=== PATIENT | female | born 1945 | race African-American/Black ===

== ENCOUNTER 2024-06-28 21:04 | Emergency (ER) | payer MEDICARE, OTHER, SELFPAY ==
--- NOTE | ~2024-06-28 | XR_ITS ---
CLINICAL HISTORY: s p cp 2 view chest x-ray Comparison: None Findings: No consolidation or effusion. No pneumothorax mild emphysematous changes. Cardiac silhouette and mediastinal contours at the upper limits of normal. Degenerative changes include imaged shoulders and AC joints. Surgical clips are noted in the imaged abdomen. IMPRESSION: No consolidation. This document has been electronically signed by: Jimmy Umana MD on 06/28/2024 22:27:14
--- NOTE | 2024-06-28 21:11 | ECG_ITS ---
Test Reason : CHEST PAIN Blood Pressure : */* mmHG Vent. Rate : 99 BPM Atrial Rate : 99 BPM P-R Int : 150 ms QRS Dur : 94 ms QT Int : 338 ms P-R-T Axes : 58 16 24 degrees QTcB Int : 433 ms Normal sinus rhythm Cannot rule out Anterior infarct , age undetermined Abnormal ECG No previous ECGs available Referred By: Generic ED Physician Electronically Signed By: CADEN NATARAJAN
[2024-06-28 21:28] VITALS: BP 160/76; PULSE 100; RESP 19; TEMP 36.6; O2SAT 98; BMI 27.8
[2024-06-28 21:52] LABS: Basophils Absolute Auto 0.1 X10*3/uL (0.0-0.2); Basophils Percent Auto 1.1 % (0-2); Eosinophils Absolute Auto 0.2 X10*3/uL (0.0-0.4); Eosinophils Percent Auto 3.2 % (0-4); Hematocrit 35.6 % (37.0-47.0); Hemoglobin 12.9 g/dl (12.0-16.0); Imm Gran Abs Auto 0.02 X10*3/uL (0.00-0.03); Imm Gran Pct Auto 0.4 % (0.0-0.4); Lymphocytes Absolute Auto 2.8 X10*3/uL (1.2-4.9); Lymphocytes Percent Auto 49.2 % (20-40); MANUAL DIFF FLAG NO; Mean Corpuscular HGB Conc 36.2 g/dl (31.0-35.0); Mean Corpuscular Hemoglobin 31.1 pg (27.0-33.0); Mean Corpuscular Volume 85.8 fL (80.0-98.0); Mean Platelet Volume 10.3 fL (9.4-12.3); Monocytes Absolute Auto 0.7 X10*3/uL (0.1-1.2); Monocytes Percent Auto 11.5 % (2-11); Neutrophils Percent Auto 34.6 % (45-73); Platelet Count 145 X10*3/uL (160-400); Red Blood Count 4.15 X10*6/uL (4.20-5.50); Red Cell Distribution Width 13.6 % (11.0-16.0); White Blood Count 5.7 X10*3/uL (4.8-10.8)
--- OUTSIDE RECORDS SUMMARY | 2024-06-28 21:58 | XMS_ITS | Data Portability ---
Author Organization [place] - [facility],, JODY BLANKENSHIP MD Address [address] [address] Care Team Providers Care Board Writer Name Role Phone AMMON HIGGINS OTHER Assessment No assessment recorded. Plan of Treatment Reminders Order Date Submit Date Provider Last Modified By Organization Details Last Modified Time Details Appointments None recorded. Lab biopsy, endometri al 2023 024 [email or web address] [facility] (Centralized Electronic Ordering - All Locations), Patient Can Go To The Location Of Their Choice, [id number] 4 07:41:16 wet mount, vaginal 2023 024 [email or web address] 1 In-Office Order, Internal Use Only DO Not Attach Compendium DO Not Attach Compendium, Do Not Delete/merge, [id number] 4 13:59:24 urinalysi s, dipstick, auto 2022 023 [email or web address] 1 In-Office Order, Internal Use Only DO Not Attach Compendium DO Not Attach Compendium, Do Not Delete/merge, [id number] 3 11:37:37 culture, urine 2022 023 JERRY [facility] (Centralized Electronic Ordering - All Locations), Patient Can Go To The Location Of Their Choice, [id number] 3 09:01:04 pap test, thinprep, cervical 2022 023 [email or web address] [facility] (Centralized Electronic Ordering - All Locations), Patient Can Go To The Location Of Their Choice, [id number] 3 07:28:09 biopsy, endometri al - endometri al cells on pap 2020 021 [facility], Cytopathology Service, [address], [place], [address], 1 07:32:58 Referral gynecolog ic oncologis t referral - 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 Imaging MAMMO, screening , digital, bilateral - Breast Aspiratio n and/or Biopsy if needed 2023 024 [facility], [address], [address], [place], [address], 4 10:27:38 bone density 2023 024 [facility], [address], [address], [place], [address], 4 07:31:33 US, pelvis, transabdo glenda + transvagi nal - left sided pelvic pain intermitt ently for 3 to 4 months 2023 024 [facility] ([facility]), [address], [place], [address], 4 16:03:45 MAMMO, screening , digital, bilateral 2022 023 JERRY [facility] Orders, [address], [address], [place], [address], 3 18:25:29 bone density 2022 023 [email or web address] [facility] Orders, [address], [address], [place], [address], 4 07:24:55 Medication Orders None recorded. Patient TargetsNo targets recorded. Patient Instructions Encounter Date Encounter Id Patient Instructions Last Modified By Organization Details Last Modified Time 03/20/2021 [id number] postmenopausal bleeding information Not available 03/20/2021 14:11:34 endometrial biop sy: about this test Not available 03/20/2021 14:11:34 She is here for emb after recent pap had endometrial cells. Her cervix is stenotic/closed. The cervix required dilation from closed, but she tolerated this well, and no evidence of false passage. Await results. Not available 03/20/2021 14:12:33 04/22/2022 [id number] urinary tract infection in women information Not available 04/22/2022 11:37:38 atrophic vaginit is: care instructions Not available 04/22/2022 11:37:37 learning about h ealthy weight Not available 04/22/2022 11:37:38 She is here for annual exam, had emb last year for pap with endometrial cells, tissue was atrophic/inactive. Has complaint of urinary frequency and dysuria on and off, dip inconclusive, check culture. note from 2020: She is here for annual exam ,is doing well, but has a few week history of vaginal pruritus and occasional dysuria. ____ She appears to be doing well. Monthly self breast exam was taught, and stressed, and is advised to call if she discovers any new mass in the breast. Not available 04/22/2022 11:39:19 06/10/2023 [id number] atrophic vaginit is: care instructions Not available 06/10/2023 13:43:52 learning about h ealthy weight Not available 06/10/2023 13:43:52 She is here for annual, doing well. She has noted a vaginal odor for a few weeks. also she has had left lower quadrant pelvic pain on and off for 4 months. She has not seen her PCP for this. Note from 2022: She is here for annual exam, had emb last year for pap with endometrial cells, tissue was atrophic/inactive. Has complaint of urinary frequency and dysuria on and off, dip inconclusive, check culture. Wet guanakito are negative, and no abnormality noted on exam, she is reassured that there is no apparent pathology to account for the vaginal discharge. Exam is unremarkable in the pelvis but check pelvic sonogram for LLQ pain. She is advised that if the sonogram is normal then she should follow up with her PCP to rule out diverticulitis. She appears to be doing well. No pap this year as it is not covered by insurance. Monthly self breast exam was taught, and stressed, and is advised to call if she discovers any new mass in the breast. Not available 06/10/2023 14:01:31 06/23/2023 [id number] postmenopausal bleeding information Not available 06/23/2023 11:28:39 endometrial biop sy: about this test Not available 06/23/2023 11:28:39 She is here for emb for pmb, she has a likely 2.2 cm endometrial polyp on sonogram. We discussed that we would not be able to remove something this large here in te office zofia mcconnell, however we are doing this to try to ascertain that there is no malignancy, and then we can refer her for D and C with hysteroscopy. EMB was done, tissue appeared to be quite atrophic, scant tissue removed, despite adequate curettage, to be expected at her age. The mass is most likely a polyp. Await path report then will refer for D and C if appropriate. this was discussed at length, all questions answered. Not available 06/23/2023 11:29:57 06/30/2023 [id number] This visit is a phone telehealth visit. The patient consented to the visit by phone. The patient was at home at the time of the call and the provider and patient were the only people on the line. I was at [address] [facility], [address], [place], [place], at the time of the call. We are discussing her emb results today. She had a complaint of right sided pain for 3 to 4 months when at her annual visit on 06/10/23. A pelvic sonogram was ordered, which showed endometrial thickness of 1.4 cm, and a 2.2 cm mass in the endometrium. Subsequent to this an emb was done, the tissue at the time was quite atrophic, so likely the mass is a solid polyp or fibroid, not lush endometrium. 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 Immunohistochemical studies were all negative, results makes adenocarcinoma in situ (NOS) unlikely. She had a pap with endometrial cells in 01/2021, and an emb was done in 03/2021 which was atrophic. Her sister had a hysterectomy many years ago because she had a severe pre-cancer in her uterus. Note from 06/23/23: She is here for emb for pmb, she has a likely 2.2 cm endometrial polyp on sonogram. We discussed that we would not be able to remove something this large here in te office zofia mcconnell, however we are doing this to try to ascertain that there is no malignancy, and then we can refer her for D and C with hysteroscopy. EMB was done, tissue appeared to be quite atrophic, scant tissue removed, despite adequate curettage, to be expected at her age. The mass is most likely a polyp. Await path report then will refer for D and C if appropriate. this was discussed at length, all questions answered. ____ Note from 2022: She is here for annual exam, had emb last year for pap with endometrial cells, tissue was atrophic/inactive. We had a long discussion about all this. She likely has a polypoid mass in the endometrial cavity. This may be the source of her pelvic discomfort, or it may not. the tissues has atypia, and at a minimum she will likely need a D and C with hysteroscopy for further information. She likely will need a hysterectomy as well, if the tissue has atypia. She understands but is aware we do not have a definitive answer yet. There is no evidence of cancer at this time. We will refer her to application support oncology as they may have a different plan in mind, and it is up to them how best to manage her, she understands. We talked about possible D and C, and possible hysterectomy, she is comfortable with this. Her only prior surgery was cholecystectomy in 2009. The patient was agreeable to this plan. She is aware of the limitations caused by the covid restrictions, and this phone call. 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 - Speci men consi sts predo minan tly of endoc ervic al gland ular epith elium and scant cervi wilman squam ous epith elium . Len Green M.D. , Patho logis t (Case elect ludmila ileanakermit david d 03 24 2021) Pre-O p/Cli nical Diagn osis: POSTM ENOPA USAL BLEED ING [N 95.0] Speci men and Site: ENDOM ETRIU M-BIO PSY Gross Descr iptio n: Endo metri al biops y . Recei neto in forma trevin is a 0.9 [address] gate of irreg ular pink- red soft tissu e fragm ents which is submi tted in toto in a mesh bag in one casse tte, multi ple piece s, x2. ROMERO Physi cians : ZACH NAGY LLAN/ [phone]/[phone] Not Available [facility], Cytopathology Service [address] [place], [address], 03/24/2021 13:46:36 04/22/19 23 04/22/2022 URINE CULTU RE specimen description URINE Not Available [facility] (Centralized Electronic Ordering - All Locations) Patient Can Go To The Location Of Their Choice, 04/25/2022 09:01:04 04/22/1904/22/2022 URINE CULTU RE special requests NONE Not Available [facility] (Centralized Electronic Ordering - All Locations) Patient Can Go To The Location Of Their Choice, 04/25/2022 09:01:04 04/22/1904/25/2022 URINE CULTU RE culture abnormal 50-10 0,000 COL/M L PROTE US MIRAB ILIS This isola te was ident ified using Maldi -TOF syste m These AST resul ts were perfo rmed on the Micro scan ID and AST syste m Not Available [facility] (Centralized Electronic Ordering - All Locations) Patient Can Go To The Location Of Their Choice, 04/25/2022 09:01:04 04/22/19 23 04/25/2022 URINE CULTU RE report status FINAL 2022 Not Available [facility] (Centralized Electronic Ordering - All Locations) Patient Can Go To The Location Of Their Choice, 04/25/2022 09:01:04 04/22/19 23 04/25/2022 URINE CULTU RE organism ORGAN ISM 50-10 0,000 COL/M L PROTE US MIRAB ILIS This isola te was ident ified using Maldi -TOF syste m These AST resul ts were perfo rmed on the Micro scan ID and AST syste m Not Available [facility] (Centralized Electronic Ordering - All Locations) Patient Can Go To The Location Of Their Choice, 04/25/2022 09:01:04 04/22/1904/25/2022 URINE CULTU RE method METHOD MIN. INHIB. CONC. (MCG/M L) Not Available [facility] (Centralized Electronic Ordering - All Locations) Patient Can Go To The Location Of Their Choice, 04/25/2022 09:01:04 04/22/1904/25/2022 URINE CULTU RE ampicillin AMPICI LLIN SUSCEP TIBLE susceptib le Not Available [facility] (Centralized Electronic Ordering - All Locations) Patient Can Go To The Location Of Their Choice, 04/25/2022 09:01:04 04/22/1904/25/2022 URINE CULTU RE ampicillin/s ulbactam AMPICI LLIN/S ULBACT AM SUSCEP TIBLE susceptib le Not Available [facility] (Centralized Electronic Ordering - All Locations) Patient Can Go To The Location Of Their Choice, 04/25/2022 09:01:04 04/22/19 23 04/25/2022 URINE CULTU RE amoxicillin/ clavulanic acid AMOXIC ILLIN/ CLAVUL AN SUSCEP TIBLE susceptib le Not Available [facility] (Centralized Electronic Ordering - All Locations) Patient Can Go To The Location Of Their Choice, 04/25/2022 09:01:04 04/22/1904/25/2022 URINE CULTU RE cefazolin CEFAZO TREVIN SUSCEP TIBLE susceptib le Not Available [facility] (Centralized Electronic Ordering - All Locations) Patient Can Go To The Location Of Their Choice, 04/25/2022 09:01:04 04/22/1904/25/2022 URINE CULTU RE cefepime CEFEPI ME SUSCEP TIBLE susceptib le Not Available [facility] (Centralized Electronic Ordering - All Locations) Patient Can Go To The Location Of Their Choice, 04/25/2022 09:01:04 04/22/19 23 04/25/2022 URINE CULTU RE ceftriaxone CEFTRI AXONE SUSCEP TIBLE susceptib le Not Available [facility] (Centralized Electronic Ordering - All Locations) Patient Can Go To The Location Of Their Choice, 04/25/2022 09:01:04 04/22/19 23 04/25/2022 URINE CULTU RE ciprofloxaci n CIPROF LOXACI N SUSCEP TIBLE susceptib le Not Available [facility] (Centralized Electronic Ordering - All Locations) Patient Can Go To The Location Of Their Choice, 04/25/2022 09:01:04 04/22/19 23 04/25/2022 URINE CULTU RE ertapenem ERTAPE NEM SUSCEP TIBLE susceptib le Not Available [facility] (Centralized Electronic Ordering - All Locations) Patient Can Go To The Location Of Their Choice, 04/25/2022 09:01:04 04/22/19 23 04/25/2022 URINE CULTU RE gentamicin GENTAM ICIN SUSCEP TIBLE susceptib le Not Available [facility] (Centralized Electronic Ordering - All Locations) Patient Can Go To The Location Of Their Choice, 04/25/2022 09:01:04 04/22/19 23 04/25/2022 URINE CULTU RE levofloxacin LEVOFL OXACIN SUSCEP TIBLE susceptib le Not Available [facility] (Centralized Electronic Ordering - All Locations) Patient Can Go To The Location Of Their Choice, 04/25/2022 09:01:04 04/22/1904/25/2022 URINE CULTU RE meropenem MEROPE NEM SUSCEP TIBLE susceptib le Not Available [facility] (Centralized Electronic Ordering - All Locations) Patient Can Go To The Location Of Their Choice, 04/25/2022 09:01:04 04/22/19 23 04/25/2022 URINE CULTU RE nitrofuranto in NITROF URANTO IN [facility] intermedi ate Not Available [facility] (Centralized Electronic Ordering - All Locations) Patient Can Go To The Location Of Their Choice, 04/25/2022 09:01:04 04/22/19 23 04/25/2022 URINE CULTU RE piperacillin /tazobactam PIPERA CILLIN /TAZOB AC SUSCEP TIBLE susceptib le Not Available [facility] (Centralized Electronic Ordering - All Locations) Patient Can Go To The Location Of Their Choice, 04/25/2022 09:01:04 04/22/19 23 04/25/2022 URINE CULTU RE trimeth/sulf amethox TRIMET H/SULF AMETHO X SUSCEP TIBLE susceptib le Not Available [facility] (Centralized Electronic Ordering - All Locations) Patient Can Go To The Location Of Their Choice, [id number] 04/25/2022 09:01:04 04/22/1904/25/2022 URINE CULTU RE tetracycline TETRAC YCLINE RESIST ANT resistant Not Available [facility] (Centralized Electronic Ordering - All Locations) Patient Can Go To The Location Of Their Choice, [id number] 04/25/2022 09:01:04 04/22/1904/22/2022 [facility] CYTOL O[facility] results Patideuce nt Name: JOYCE DAN nt : 1945 (Age: 76) Lab Acces shirley #: [id number] Colle ction Date: 023 Acces shirley Date: 023 Sign Out Date: 2022 Tissu e Sourc e: 1: THINP REP MUD JACK OPERATOR PAP TEST, CERVI WILMAN: Final Diagn osis: NEGAT FUAD FOR INTRA EPITH ELIAL LESIO N OR MALIG PARTHA . Atrop hy. Satis facto ry for evalu ation . Parti ally obscu ring blood prese nt. Clini wilman Histo ry: Date of Last Menst rual Perio d: not avail able Menst rual Histo ry: Post- menop ausal Contr acept fuad Histo ry: not avail able Ancil reginaldo Testi ng: HPV (ASCU S) Case image d by the ThinP rep Imagi ng Syste m with keeley hernandez or naomie phan Perfo rmed at [facility] ate Refer ence [facility] Cytol ogy, [address] [place] Clini wilman Histo ry (othe r): Z12.4 , LPS 02/12 negat fuad, routi ne scree n Phone #: [phone], On-Ca ll Patho logis t: [id number] Not Available [facility] (Centralized Electronic Ordering - All Locations) Patient Can Go To The Location Of Their Choice, [id number] 05/11/2022 12:37:32 04/22/1904/2204/22/2022 urina lysis , dipst ick, auto glucose negati ve Not Available In-Office Order Internal Use Only DO Not Attach Compendium DO Not Attach Compendium, Do Not Delete/merge, 04/22/2022 09:15:29 04/22/19 23 04/22/2022 urina lysis , dipst ick, auto ANABELLA small Not Available In-Office Order Internal Use Only DO Not Attach Compendium DO Not Attach Compendium, Do Not Delete/merge, 04/22/2022 09:15:29 04/22/19 23 04/22/2022 urina lysis , dipst ick, auto ket negati ve Not Available In-Office Order Internal Use Only DO Not Attach Compendium DO Not Attach Compendium, Do Not Delete/merge, 04/22/2022 09:15:29 04/22/19 23 04/22/2022 urina lysis , dipst ick, auto SG 1.010 Not Available In-Office Order Internal Use Only DO Not Attach Compendium DO Not Attach Compendium, Do Not Delete/merge, 04/22/2022 09:15:29 04/22/19 23 04/22/2022 urina lysis , dipst ick, auto BLO HEMOLY ZED: TRACE Not Available In-Office Order Internal Use Only DO Not Attach Compendium DO Not Attach Compendium, Do Not Delete/merge, 04/22/2022 09:15:29 04/22/19 23 04/22/2022 urina lysis , dipst ick, auto PH 6.0 Not Available In-Office Order Internal Use Only DO Not Attach Compendium DO Not Attach Compendium, Do Not Delete/merge, 04/22/2022 09:15:29 04/22/19 23 04/22/2022 urina lysis , dipst ick, auto PRO NEGATI VE Not Available In-Office Order Internal Use Only DO Not Attach Compendium DO Not Attach Compendium, Do Not Delete/merge, 04/22/2022 09:15:29 04/22/19 23 04/22/2022 urina lysis , dipst ick, auto URO 1 E.U. / dl Not Available In-Office Order Internal Use Only DO Not Attach Compendium DO Not Attach Compendium, Do Not Delete/merge, 04/22/2022 09:15:29 04/22/19 23 04/22/2022 urina lysis , dipst ick, auto NIT NEGATI VE Not Available In-Office Order Internal Use Only DO Not Attach Compendium DO Not Attach Compendium, Do Not Delete/merge, 04/22/2022 09:15:29 04/22/19 23 04/22/2022 urina lysis , dipst ick, auto CHARAN SMALL Not Available In-Office Order Internal Use Only DO Not Attach Compendium DO Not Attach Compendium, Do Not Delete/merge, 04/22/2022 09:15:29 06/10/19 24 06/10/2023 wet mount , vagin al Clue Cells negati ve Not Available In-Office Order Internal Use Only DO Not Attach Compendium DO Not Attach Compendium, Do Not Delete/merge, 06/10/2023 13:59:13 06/10/19 24 06/10/2023 wet mount , vagin al Trichomonas negati ve Not Available In-Office Order Internal Use Only DO Not Attach Compendium DO Not Attach Compendium, Do Not Delete/merge, 06/10/2023 13:59:13 06/10/19 24 06/10/2023 wet mount , vagin al Hyphae negati ve Not Available In-Office Order Internal Use Only DO Not Attach Compendium DO Not Attach Compendium, Do Not Delete/merge, 06/10/2023 13:59:13 06/10/19 24 06/10/2023 wet mount , vagin al atrophic epithelium positi ve Not Available In-Office Order Internal Use Only DO Not Attach Compendium DO Not Attach Compendium, Do Not Delete/merge, 06/10/2023 13:59:13 06/23/19 24 06/23/2023 [facility] SUR[facility] PATHO LOGY results Rosio dsouza Name: JOYCE DAN Acces shirley #: [id number] Rosio dsouza : 1945 (Age: 77) Colle ction Date: 024 Acces shirley Date: Sign Out Date: 2023 Tissu e Sourc e: 1:END OMETR IUM BIOPS Y Final Diagn osis: Endom etriu m, biops y: - Atypi wilman mucin ous epith elial proli ferat ion (see note) . - Scant backg round of atrop hic endom etriu m. - Immun ohist ochem ical studi es are perfo rmed; the resul ts are as follo ws: A. ER: Negat fuad in atypi wilman mucin ous epith elium . B. p16: Negat fuad in atypi wilman mucin ous epith elium . C. CEA: Negat fuad in atypi wilman mucin ous epith elium . D. Vimen tin: Negat fuad in atypi wilman mucin ous epith elium . Inter preta tion: Resul ts makes adeno carci noma in-si tu (NOS) unlik abby. Note: There are abund ant atypi wilman mucin ous epith elium prese nt in this biops y, mostl y in super ficia l singl e ribbo n nolvia rn. The atypi wilman mucin ous epith elium (with rare mitos es) is roger nuous with endoc ervic al gland ular epith elium focal ly, which raise s a possi bilit y of endoc ervic al origi n. Altho ugh cytol ogic atypi a is mild, and the abund ant natur e of atypi wilman mucin ous epith elium in this speci men makes it possi raphael neopl astic proce ss. Clini wilman follo w up is recom jose angel d. Comme nt: These immun ohist ochem istry and/o r in-si hybri dizat ion tests were devel oped and their perfo rmanc e yakelin cteri stics deter mined by the immun ohist ochem istry and in-si hybri dizat ion labor joan es at [facility] ate Refer ence Yael Blackmon [place]. They may not have been clear ed or appro neto by the U.S. Food and Drug Admin istra tion (FDA) . Howev er, the FDA has deter mined that such clear ance or appro seymour is not neces priyanka. These tests are used for clini wilman purpo ses. They shoul d not be regar ded as inves tigat ional or for resea rch. All immun ohist ochem ical contr ols are revie wed and show appro priat e stain ing. The speci men proce ssing and stain ing perfo rmed at [facility] , [address], [place] (CLIA #[id number]). Its perfo rmanc e yakelin cteri stics deter mined by [facility]. Prima ry Patho logis t:Naveed Keith M.D. elect ludmila cortes david d out by: Naveed Keith M.D. / BIBI Clini wilman Histo ry: Postm enopa usal bleed ing Gross Descr iptio n: Label ed EMB . Recei neto in forma trevin and filte red is a 0.8 x 0.7 x 0.1 [address] aggre gate of michelle, red tissu e with some trans lucen t mucus . The speci men is entir abby submi tted. 1-mul tiple piece s, x2. (HG)* Phone #: [phone], On-Ca ll Patho logis t: [id number] Not Available [facility] (Centralized Electronic Ordering - All Locations) Patient Can Go To The Location Of Their Choice, [id number] 06/28/2023 17:10:31 07/20/1907/19/2021 MAMMO , scree alejo, digit al, bilat eral No observ ation record ed. [facility] Orders [address], [place], [address], 07/20/2021 11:37:36 08/19/19 22 08/13/2021 bone densi ty No observ ation record ed. [facility] [address], [place], [address], 08/19/2021 09:28:11 09/27/19 23 09/26/2022 MAMMO , scree alejo, digit al, bilat eral No observ ation record ed. [facility] [address] [place], [address], 09/28/2022 07:37:12 06/16/19 24 06/16/2023 US, pelvi s, trans abdom inal + trans vagin al No observ ation record ed. [email or web address] Not Available 2023 09:26:54 11/04/19 24 11/04/2023 bone densi ty No observ ation record ed. [email or web address] [facility] [address] [place], [address], 11/04/2023 11:19:40 12/13/19 24 12/11/2023 MAMMO , scree alejo, digit al, bilat eral No observ ation record ed. [facility] [address] [place], [address], 12/13/2023 13:26:49 Result Notes None recorded. Problems Name Problem SNOMED Code Status Onset Date Resolution Date Notes Provider Name and Address Organization Details Recorded Time Edema of foot 625248802 Active Jody Blankenship MD [address], [place], [address], [place] [facility], 6 15:39:57 Abscess of vulva 79246089 Active 2015 spider bite lower left labia Jody Blankenship MD [address], [place], [address], [place] [facility], 6 08:51:39 Lichen sclerosus et atrophicus Active 2018 Jody Blankenship MD [address], [place], [address], [place] [facility], 9 15:49:23 Menopausal syndrome [id number] Active Jody Blankenship MD [address], [place], [address], [place] - [facility], 6 15:39:57 Gout [id number] Active 2019 Bambi eng [place] - [facility], 0 14:24:40 Problem Notes None recorded. Procedures Surgical History Date Name Laterality Status Provider Name and Address Organization Details Recorded Time 06/23/19 24 Endometrial Biopsy completed Jody Blankenship MD [address], [place], [address], [place] [facility], 06/23/2023 11:28:32 09/27/19 23 Most Recent Mammogram completed Jing Alcala in [facility], 05/14/2023 07:59:44 08/14/19 22 Most Recent Bone Density completed Bambi Alcala in [facility], 04/22/2022 09:13:41 03/20/20 21 Endometrial Biopsy completed Jody Blankenship MD [address], [place], [address], [place] [facility], 03/20/2021 14:13:15 12/13/19 16 I&D completed Jody Blankenship MD [address], [place], [address], [place] [facility], 12/13/2015 12:54:28 04/19/19 10 Cholecystectomy completed Jing Alcala in [facility], 09/02/2012 15:53:36 Imaging Results Imaging Date Name Status LastModified by Organization Details LastModified Time 07/19/2021 MAMMO, screening, digital, bilateral completed [facility] [address], [place], [address], 07/20/2021 11:37:36 08/13/2021 bone density completed [facility] [address], [place], [address], 08/19/2021 09:28:11 09/26/2022 MAMMO, screening, digital, bilateral completed [facility] [address], [place], [address], 09/28/2022 07:37:12 06/16/2023 US, pelvis, transabdominal + transvaginal completed Information not available 06/21/2023 09:26:54 11/04/2023 bone density completed [email or web address] [facility] [address], [place], [address], 11/04/2023 11:19:40 12/11/2023 MAMMO, screening, digital, bilateral completed [facility] Breast [facility] [address], [place], [address], 12/13/2023 13:26:49 Procedure Notes None recorded. Medical Equipment None Reported. Allergies Allergen ID Allergen Name Allergen Category Reaction Reaction Severity Criticality Documentation Date Start Date Code Code System Note Provider Name and Address Organization Details Recorded Time 8281 Product containin g penicilli n (product) medicatio n hives Not available Not available 09/02/2012 52076 8001 SNOMED Jing eng [place] [facility], 3 15:53:36 Medications Name Sig Start Date Stop Date Status Note LastModified by Organization Details LastModified Time cyclobenzap rine 10 mg tablet 03/20 completed Not Available Not Available Not Available latanoprost 0.005 % eye drops PLACE 1 DROP INTO BOTH EYES AT BEDTIME 04/22 completed Not Available Not Available Not Available neomycin-po lymyxin-hyd rocort 3.5 mg/mL-10,00 0 unit/mL-1 % ear solution INSTILL 2 DROPS INTO LEFT EAR 4 TIMES A DAY FOR 7 DAYS active Not Available Not Available No t Available potassium chloride ER 10 mEq capsule,ext ended release TAKE 1 CAPSULE BY MOUTH EVERY DAY active Not Available Not Available No t Available prednisone 10 mg tablet 01/10 completed Not Available Not Available Not Available trazodone 50 mg tablet active Not Available Not Available Not Available cefpodoxime 200 mg tablet TAKE 1 TABLET BY MOUTH EVERY 12 HOURS FOR 7 DAYS active Not Available Not Available No t Available azithromyci n 250 mg tablet take 2 tablets on day 1 ( 500 mg) then one tablet a day for 4 additiona l days 09/17 completed Not Available Not Available Not Available fluconazole 150 mg tablet Take 1 tablet every day by oral route at bedtime for 1 day. 03/20 completed Not Available Not Available Not Available ondansetron HCl 4 mg tablet TAKE 1 TABLET BY MOUTH 3 TIMES A DAY NEEDED FOR NAUSEA active Not Available Not Available No t Available sulfamethox azole 800 mg-trimetho prim 160 mg tablet active Not Available Not Available Not Available omeprazole 40 mg capsule,del ayed release TAKE 1 CAPSULE BY MOUTH EVERY DAY active Not Available Not Available No t Available tramadol 50 mg tablet active Not Available Not Available No t Available triamterene 37.5 mg-hydrochl orothiazide 25 mg capsule TAKE 1 CAPSULE BY MOUTH EVERY DAY 03/20 completed Not Available Not Available Not Available benzonatate 100 mg capsule TAKE 1 CAPSULE BY MOUTH 3 TIMES A DAY,X7 DAYS NEEDED FOR COUGH DO NOT CRUSH OR CHEW active Not Available Not Available No t Available tobramycin 0.3 % eye drops active Not Available Not Available Not Available triamcinolo ne acetonide 0.1 % topical ointment APPLY THIN COAT TO AFFECTED AREA TWICE A DAY 03/20 completed Not Available Not Available Not Available valsartan 320 mg tablet TAKE 1 TABLET BY MOUTH EVERY DAY active Not Available Not Available No t Available indomethaci n 25 mg capsule TK 1 TO 2 CS PO Q 8 H WF 09/17 completed Not Available Not Available Not Available orphenadrin e citrate ER 100 mg tablet,exte nded release active Not Available Not Available Not Available triamterene 37.5 mg-hydrochl orothiazide 25 mg tablet active Not Available Not Available Not Available omeprazole 20 mg capsule,del ayed release TAKE 1 CAPSULE BY MOUTH DAILY BEFORE A MEAL 02/12 completed Not Available Not Available Not Available diclofenac sodium 75 mg tablet,mario yed release 04/22 completed Not Available Not Available Not Available mupirocin 2 % topical ointment active Not Available Not Available Not Available furosemide 20 mg tablet TAKE 1 TABLET BY MOUTH EVERY DAY active Not Available Not Available No t Available levofloxaci n 500 mg tablet active Not Available Not Available Not Available fluticasone propionate 50 mcg/actuati on nasal spray,suspe nsion USE 2 SPRAYS IN EACH NOSTRIL EVERY MORNING FOR 14 DAYS 02/12 completed Not Available Not Available Not Available doxycycline hyclate 100 mg tablet PLEASE SEE ATTACHED FOR DETAILED DIRECTION S active Not Available Not Available No t Available valsartan 160 mg tablet TAKE 1 TABLET BY MOUTH EVERY DAY active Not Available Not Available No t Available azithromyci n 500 mg tablet Take 1 tablet every day by oral route for 3 days. 09/17 completed Not Available Not Available Not Available nitrofurant oin monohydrate /macrocryst als 100 mg capsule TAKE 1 CAPSULE BY MOUTH TWICE A DAY FOR 7 DAYS 04/22 completed Not Available Not Available Not Available Zyrtec active Not Available Not Availa ble Not Available Virtussin AC 10 mg-100 mg/5 mL oral liquid 09/17 completed Not Available Not Available Not Available Fluarix Quad [id number] (PF) 60 mcg (15 mcg x 4)/0.5 mL IM syringe inject 0.5 millilite r intramusc ularly 11/24 completed Not Available Not Available Not Available Vitals Date Recorded Body height Body mass index (BMI) Body weight Heart rate Body temperature Systolic blood pressure Diastolic blood pressure Provider Name and Address Organization Details Last Updated DateTime 1 163.83 cm 32.7 kg/m2 30609.7 6 g 96 /min 97.2 [degF] 151 mm[Hg] 87 mm[Hg] Jing Cobb [place] - [facility], 1 13:54:53 Date Recorded Body height Body mass index (BMI) Body weight Body temperature Heart rate Systolic blood pressure Diastolic blood pressure Provider Name and Address Organization Details Last Updated DateTime 3 162.56 cm 30.9 kg/m2 46292.3 5 g 96.8 [degF] 79 /min 143 mm[Hg] 77 mm[Hg] Bambi Hernandez [facility], 3 09:07:57 Date Recorded Body weight Body mass index (BMI) Body height Body temperature Heart rate Systolic blood pressure Diastolic blood pressure Provider Name and Address Organization Details Last Updated DateTime 4 77140.5 5 g 32.6 kg/m2 162.56 cm 70 [degF] 91 /min 154 mm[Hg] 83 mm[Hg] rosaura Alcala in [facility], 4 13:22:22 Date Recorded Body height Body mass index (BMI) Body weight Body temperature Heart rate Systolic blood pressure Diastolic blood pressure Provider Name and Address Organization Details Last Updated DateTime 4 162.56 cm 33 kg/m2 59145.7 4 g 97.4 [degF] 86 /min 152 mm[Hg] 80 mm[Hg] Jing [place]cal[place] in [facility], 4 10:01:24 Date Recorded Body height Provider Name an d Address Organization Details Last Updated DateTime 06/30/2023 162.56 cm Jing wen in [facility], 06/30/2023 09:54:58 Social History Question Answer Notes LastModified by Organizat ion Details LastModified Time Tobacco Smoking Status Never Smoker Not Available [facility] 02/20/2020 03:19:37 What Is Your Level Of Alcohol Consumption? Occasional [id number] Information not available 02/20/2020 How Many Years Have You Consumed Alcohol? 55 Information not available 02/12/2021 What Is Your Level Of Caffeine Consumption? Occasional [id number] Information not available 02/20/2020 In The 14 Days Before Symptom Onset, Have You Had Close Contact With A Laboratory-confir med COVID-19 While That Case Was Ill? No Information not available 02/12/2021 In The 14 Days Before Symptom Onset, Have You Had Close Contact With A Person Who Is Under Investigation For COVID-19 While That Person Was Ill? No Information not available 02/12/2021 Have You Been To An Area Known To Be High Risk For COVID-19? No Information not available 02/12/2021 Are You Currently Employed? No Information not available 02/12/2021 What Type Of Diet Are You Following? REGULAR [id number] Information not available 02/20/2020 Which Illicit Or Recreational Drugs Have You Used? No [id number] Information not available 02/20/2020 Do You Reside In Or Have You Traveled To An Area Where Ebola Virus Transmission Is Active? No [id number] Information not available 02/20/2020 Do You Or Have You Ever Used E-cigarettes Or Vape? Never Used Electronic Cigarettes [id number] Information not available 02/20/2020 Education 2 Year College Informatio n not available 09/02/2012 What Is The Highest Grade Or Level Of School You Have Completed Or The Highest Degree You Have Received? [id number] Information not available 02/12/2021 What Is Your Occupation? Retired [id number] Information not available 02/20/2020 How Many Days In The Past Year Have You Had A Heavy Drinking Consumption (4+ Female, 5+ Male)? 0 Information no t available 12/12/2015 Are There Any Guns Present In Your Home? No Information not available 02/12/2021 High Number Of Sexual Partners No Information not available 12/12/2015 To Which Gender Do You Self-identify? Female Information not available 12/12/2015 Marital Status Informatio n not available 09/02/2012 What Was The Date Of Your Most Recent Tobacco Screening? 06/10/2023 [email or web address] Information not available 06/10/2023 What Is Your Relationship Status? Information not available 02/12/2021 Are You Sexually Active? No [id number] Information not available 02/20/2020 Do You Or Have You Ever Used Smokeless Tobacco? Never Used Smokeless Tobacco [id number] Information not available 02/20/2020 How Much Tobacco Do You Smoke? No [id number] Information not available 02/20/2020 General Stress Level High Information not available 01/11/2020 Do You Feel Stressed (tense, Restless, Nervous, Or Anxious, Or Unable To Sleep At Night)? [id number] Information not available 02/12/2021 How Many Years Have You Smoked Tobacco? 0 [id number] Information not available 02/20/2020 Have You Recently (within The Last 12 Weeks, Or During A Current ) Traveled To Or Lived In A Zika-affected Area? No Information not available 12/12/2015 How Many Days In The Past Year Have You Consumed 4 Or More Drinks? 0 Information no t available 02/12/2021 Sex: Female Functional Status Question Answer Note LastModified by Organizat ion Details LastModified Time What is your exercise level? Occasional [id number] Information not available 02/20/2020 Mental Status None recorded. Family History Relationship Description Onset Age of this Age Resolved Age Notes LastModified by Organization Details LastModified Time Mother Malignant tumor of breast 79 previo usly record ed as Breast Cancer Not available 09/17/2015 15:38:05 Mother Hypertensive disorder previo usly record ed as Hypert ension Not available 09/17/2015 15:38:05 Father Hypertensive disorder previo usly record ed as Hypert ension Not available 09/17/2015 15:38:05 Father Malignant tumor of lung previo usly record ed as Lung Cancer Not available 09/17/2015 15:38:05 Father Myocardial infarction previo usly record ed as Heart Attack (ND) Not available 09/17/2015 15:38:05 Unspecified Relation Kidney disease nephew ca Not available 09/17/2015 15:38:05 Unspecified Relation Problem lung Not available 09/16 15:38:05 Medical History Condition Response Anesthesia complications N High Blood Pressure Y Candidate for MyRisk panel N Autoimmune Condition N Kidney or Bladder Problems N Thyroid Problems N Depression N Lung Disease N GI Problems Y Defects or Inherited Disease N History of Ovarian Cancer N Anemia N History of Breast Cancer N [place] exposure N BRCA testing in past N Osteopenia N Psychiatric Illness N Anxiety Disorder N Diabetes N Arthritis N Headaches or Migraines N Infertility N Asthma N History of Cancer N Endometriosis N Hepatitis N Heart Disease N Hypertension Y Osteoporosis N Gynecological History Statement/Question Response If Post Menopausal, Age at Menopause 51 Age at Menarche 11 Most Recent Mammogram 09/26/2022 Age at First Child 20 Most Recent Bone Density 08/13/2021 Hormone Replacement Therapy N Obstetrics History GPAL:G 1 P 1 0 0 1 Type Value Full Term 1 Living 1 Total 1 Immunizations Vaccine Type Date Status Note Provider Nam e and Address Organization Details Recorded Time Tdap 3 completed Jing eng [place] - [facility], 09/02/2012 15:53:36 Influenza, split virus, trivalent, preservative 3 completed Jing Spearwor albertina [place] - [facility], 09/04/2013 15:50:33 Influenza, split virus, trivalent, preservative 4 completed Jing Meczywor null [place] - [facility], 09/06/2014 16:07:03 Influenza, split virus, trivalent, preservative 5 completed Jing Mecswathiywor albertina [place] - [facility], 09/17/2015 15:33:04 influenza, unspecified formulation 6 completed [place] in [facility], 09/17/2016 15:14:32 Influenza, split virus, quadrivalent, preservative 7 completed Jing Castellanosywmj eng [place] - [facility], 09/17/2017 15:27:39 Influenza, split virus, quadrivalent, preservative 8 completed Pita eng [place] [facility], 11/24/2018 15:23:49 Influenza, split virus, quadrivalent, preservative 9 completed [place] in [facility], 01/11/2020 14:24:06 COVID-19, mRNA, LNP-S, PF, 100 mcg/0.5mL dose or 50 mcg/0.25mL dose 1 completed [place] in [facility], 02/12/2021 09:47:39 COVID-19, mRNA, LNP-S, PF, 100 mcg/0.5mL dose or 50 mcg/0.25mL dose 1 completed [place] in [facility], 02/12/2021 09:47:34 Influenza, split virus, quadrivalent, preservative 1 completed [place] in [facility], 02/12/2021 09:47:59 influenza, unspecified formulation 2 completed [place] in [facility], 04/22/2022 09:12:43 Past Encounters Encounter ID Performer Location Encounter Start Date Encounter Closed Date Diagnosis/Indication Diagnosis SNOMED-CT Code Diagnosis ICD10 Code Diagnosis Note [id number] Jing Dailyfranciscomj JODY BLANKENSHIP MD [address] [place] [address] 09/02/2012 15:15:25 09/05/2012 09:52:43 [id number] JODY BLANKENSHIP MD [address] [facility],[address] [place] [address] 09/04/2013 15:24:12 09/04/2013 16:28:56 Screening for malignant neoplasm of cervix 469914671 Screening mammography [id number] JODY BLANKENSHIP MD [address] [facility],[address] [place] [address] 09/06/2014 15:55:44 09/07/2014 08:15:27 Screening for malignant neoplasm of cervix 534284304 Screening mammography 36263358 Edema of foot 646979879 [id number] MD JODY Talavera MD [address] [facility],[address] [place] [address] 09/17/2015 15:13:24 09/17/2015 16:05:45 Screening for malignant neoplasm of cervix 755286791 Z12.4 Screening mammography 24 329751 Z12.31 [id number] MD JODY Talavera MD [address] [facility],[address] [place] [address] 12/12/2015 14:36:40 12/12/2015 16:05:58 Abscess of vulva 08506316 N76.4 [id number] MD JODY Talavera MD [address] [facility],[address] [place] [address] 12/13/2015 11:23:04 12/13/2015 13:05:24 Abscess of vulva 47314856 N76.4 Spider bite wound 620566 008 W64.XXXD [id number] MD JODY Talavera MD [address] [place] [address] [place] [address] 12/16/2015 08:23:54 12/16/2015 10:12:09 Abscess of vulva 22450872 N76.4 [id number] MD JODY Talavera MD [address] [place] [address] [place] [address] 09/17/2016 15:09:33 09/17/2016 16:13:12 Screening for malignant neoplasm of cervix 135326694 Z12.4 Cares for self 703140628 Z76.89 [id number] MD JODY Talavera MD [address] [place] [address] [place] [address] 09/17/2017 15:18:42 09/17/2017 16:01:01 Screening for malignant neoplasm of cervix 282566173 Z12.4 Screening mammography 24 333473 Z12.31 Cares for self 255759446 Z76.89 [id number] MD JODY Talavera MD [address] [place] [address] [place] [address] 11/24/2018 15:07:36 11/24/2018 15:50:30 Screening for malignant neoplasm of cervix 018021047 Z12.4 Screening mammography 24 094146 Z12.31 Screening for osteoporosis 937999704 Z13.820 [id number] MD JODY Talavera MD [address] [place] [address] [place] [address] 01/11/2020 14:13:52 01/11/2020 15:52:52 Screening for malignant neoplasm of cervix 827905016 Z12.4 Screening mammography 24 573029 Z12.31 Screening for osteoporosis 295620509 Z13.820 [id number] MD JODY Talavera MD [address] [place] [address] [place] [address] 02/12/2021 09:29:44 02/12/2021 10:16:02 Screening for malignant neoplasm of cervix 024380866 Z12.4 Screening mammography 24 202900 Z12.31 Screening for osteoporosis 538915997 N95.8 Dysuria 84115378 R30.0 Candidal vulvovaginitis 03575378 B37.3 [id number] MD JODY Talavera MD [address] [place] [address] [facility] [place] [place] [address] 03/20/2021 13:50:29 03/20/2021 15:37:55 Postmenopausal bleeding 52574104 N95.0 [id number] MD JODY Talavera MD [address] [place] [address] [place] [facility] [place] [place] [address] 04/22/2022 09:04:17 04/22/2022 12:03:59 Screening for malignant neoplasm of cervix 803601993 Z12.4 Screening mammography 24 160215 Z12.31 Screening for osteoporosis 068251813 N95.8 Dysuria 50046462 R30.0 [id number] MD JODY Talavera MD [address] [place] [address] [place] [address] 06/10/2023 13:16:11 06/10/2023 15:57:47 Screening mammography 69893335 Z12.31 Screening for osteoporosis 286504522 N95.8 Pain in pelvis 71020906 R10.2 Screening for malignant neoplasm of cervix 034505565 Z12.4 Vaginal discharge 356681 006 N89.8 [id number] MD JODY Talavera MD [address] [place] [address] [place] [address] 06/23/2023 09:59:11 06/24/2023 11:02:16 Postmenopausal bleeding 93714299 N95.0 [id number] MD JODY Talavera MD [address] [place] [address] [place] [address] 06/30/2023 09:54:05 06/30/2023 11:25:11 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 Endometrium thickened 44 8886183 R93.89 Polyp of corpus uteri 11 857909 N84.0 Health Concerns Section Related Observation LastModified by Organization Detai ls LastModified Time None Recorded Concern Status LastModified by Organization Details LastModified Time None Recorded Advance Directives Directive None Recorded Payers Encounter Date Sequence Insurance Name Policy Number Policy Andrews Covered Member ID Andrews Member ID Guarantor Name 03/20/2021 1 [place] [facility] Joycetheodora Penn [id number] Joyce Fili 03/20/2021 2 [facility] (MEDICARE SUPPLEMENT) Joyce Penn [id number] Joyce Fili 04/22/2022 1 [place] [facility] Joycetheodora Pnen [id number] Joyce Fili 04/22/2022 2 [facility] (MEDICARE SUPPLEMENT) Joyce Penn [id number] Joyce Fili 06/10/2023 1 [place] [facility] Joycetheodora Penn [id number] Joyce Fili 06/10/2023 2 [facility] (MEDICARE SUPPLEMENT) Joyce Penn [id number] Joyce Fili 06/23/2023 1 [place] [facility] Joycetheodora Penn [id number] 61 Joyce Fili 06/23/2023 2 [facility] (MEDICARE SUPPLEMENT) Joyce Penn [id number] Joyce Fili 06/30/2023 1 [place] [employer] Joycetheodora Penn [id number] 61 Joyce Fili 06/30/2023 2 [facility] (MEDICARE SUPPLEMENT) Joyce Fili [id number] Joyce Fili Notes Date Note Type Note Provider Name and Address Organization Details Recorded Time text/html She is here for emb after recent pap had endometrial cells. Her cervix is stenotic/closed. Jody Blankenship MD [address] [facility],[address], [place], [address], [place] [facility], 03/20/2021 14:13:38 3 text/html She is here for annual exam, had emb last year for pap with endometrial cells, tissue was atrophic/inactive. note from 2020: She is here for annual exam ,is doing well, but has a few week history of vaginal pruritus and occasional dysuria. Jody Blankenship MD [address] [facility],[address], [place], [address], [facility], 04/22/2022 11:39:46 4 text/html She is here for annual, doing well. She has noted a vaginal odor for a few weeks. also she has had left lower quadrant pelvic pain on and off for 4 months. She has not seen her PCP for this. Note from 2022: She is here for annual exam, had emb last year for pap with endometrial cells, tissue was atrophic/inactive.Has complaint of urinary frequency and dysuria on and off, dip inconclusive, check culture. Jody Blankenship MD [address] [facility],[address], [place], [address], [place], 06/10/2023 14:01:49 4 text/html She is here for emb for pmb, she has a likely 2.2 cm endometrial polyp on sonogram. We discussed that we would not be able to remove something this large here in te office wiz[facility]ary mcconnell, however we are doing this to try to ascertain that there is no malignancy, and then we can refer her for D and C with hysteroscopy. Jody Blankenship MD [address] [facility],[address], [place], [address], [place], 06/23/2023 11:30:23 4 text/html This visit is a phone telehealth visit. The patient consented to the visit by phone. The patient was at home at the time of the call and the provider and patient were the only people on the line. I was at [address] [facility], [address], [place], at the time of the call. We are discussing her emb results today. She had a complaint of right sided pain for 3 to 4 months when at her annual visit on 06/10/23. A pelvic sonogram was ordered, which showed endometrial thickness of 1.4 cm, and a 2.2 cm mass in the endometrium. Subsequent to this an emb was done, the tissue at the time was quite atrophic, so likely the mass is a solid polyp or fibroid, not lush endometrium. 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 Immunohistochemical studies were all negative, results makes adenocarcinoma in situ (NOS) unlikely. She had a pap with endometrial cells in 01/2021, and an emb was done in 03/2021 which was atrophic. Her sister had a hysterectomy many years ago because she had a severe pre-cancer in her uterus. Note from 06/23/23: She is here for emb for pmb, she has a likely 2.2 cm endometrial polyp on sonogram. We discussed that we would not be able to remove something this large here in te office zofia mcconnell, however we are doing this to try to ascertain that there is no malignancy, and then we can refer her for D and C with hysteroscopy.EMB was done, tissue appeared to be quite atrophic, scant tissue removed, despite adequate curettage, to be expected at her age. The mass is most likely a polyp.Await path report then will refer for D and C if appropriate. this was discussed at length, all questions answered. __ Note from 2022:She is here for annual exam, had emb last year for pap with endometrial cells, tissue was atrophic/inactive. Jody Blankenship MD [address] [facility], [place], [address], [place] - [facility], 06/30/2023 10:30:29 OBGyn Episode No OBEpisode recorded.
--- OUTSIDE RECORDS SUMMARY | 2024-06-28 21:58 | XMS_ITS | Continuity of Care Document ---
Author Organization [facility] Address [address] [place] [address]- Care Team Providers Care Topographical Engineer Name Role Phone Jeanmarie Zambrano MD Primary Care Physician Encounter [facility] Date(s): 06/01/24 - 06/08/24 [facility] [address] [place], [place] [address] Attending Physician: Jeanmarie Zambrano MD Encounter Type: Office Visit Allergies, Adverse Reactions, Alerts Substance Criticality Severity Reaction Reaction Severity Status penicillins rash Active Biaxin sick Active Augmentin diarrhea hives Activ e Levaquin gi upset Active Immunizations Given and Recorded Vaccine Date Status Refusal Reason pneumococcal 20-valent conjugate vaccine 03/02/23 Given influenza virus vaccine, inactivated 03/02/23 Give n influenza virus vaccine, inactivated 1 02/10/21 Gi jovany influenza virus vaccine, inactivated 2 01/19/20 Gi jovany influenza virus vaccine, inactivated 3 03/09/19 Gi jovany influenza virus vaccine, inactivated 01/30/19 Jones rded influenza virus vaccine, inactivated 4 03/08/18 Gi jovany influenza virus vaccine, inactivated 02/17/18 Jones rded influenza virus vaccine, inactivated 05/01/17 Give n influenza virus vaccine, inactivated 01/26/17 Jones rded influenza virus vaccine, inactivated 5 01/23/16 Re corded influenza virus vaccine, inactivated 02/12/15 Give n influenza virus vaccine, inactivated 01/17/15 Jones rded influenza virus vaccine, inactivated 02/09/14 Give n influenza virus vaccine, inactivated 01/17/14 Jones rded influenza virus vaccine, inactivated 01/17/13 Jones rded influenza virus vaccine, inactivated 01/02/13 Give n influenza virus vaccine, inactivated 6 06/03/12 Gi jovany influenza virus vaccine, inactivated 02/24/11 Give n influenza virus vaccine, inactivated 01/06/10 Give n tetanus-diphtheria toxoids (Td) 10/08/21 Given tetanus-diphtheria toxoids (Td) 03/17/06 Given SARS-CoV-2 (COVID-19) mRNA-1273 vaccine 10/02/21 R ecorded SARS-CoV-2 (COVID-19) mRNA-1273 vaccine 05/14/21 R ecorded SARS-CoV-2 (COVID-19) mRNA-1273 vaccine 07/19/20 R ecorded SARS-CoV-2 (COVID-19) mRNA-1273 vaccine 06/21/20 R ecorded pneumococcal 13-valent vaccine 7 03/08/18 Given Pneumococcal Vaccine (oldterm) 10/26/13 Given tetanus/diphtheria/pertussis, acel(Tdap) 06/03/12 Given tetanus/diphtheria/pertussis, acel(Tdap) 04/19/12 Recorded Influenza Virus Vaccine (oldterm) 8 03/17/06 Given 1Result Comment: pt. tolerated inj. without complications...CO 2Result Comment: PATIENT HANDLED PROCEDURE WELL WITH NO COMPLAINTS [facility]: 18107-326-79 3Result Comment: [id number] 4Result Comment: [03/08/2018] [id number] 5Result Comment: [01/24/2016] QUAD 6Admin Note: FLUZONE 7Result Comment: [03/08/2018] [id number] 8Admin Note: given here Medications amLODIPine 5 mg oral tablet 5 mg, By Mouth, Daily, # 90 each, Refills 3, Tot. Refills 3, Maintenance, 09/07/23 7:39:00 AM EDT, Route to Pharmacy Electronically, [facility]/pharmacy #[id number], Partial fill upon patient request if the prescription is for a schedule II opioid drug., 165, cm, 09/03/23 10:31:00 EDT, Height, 81.8, kg, 09/02/2409:31:00 EDT, Dry Weight Start Date: 09/07/23 Stop Date: 09/01/24 Status: Ordered Quantity: 90.0 Unit: each Repeat number: 4 atorvastatin 10 mg oral tablet 1 tablet = 10 mg, By Mouth, Daily, # 30 tablet, 11 Refills, Maintenance, 07/29/23 9:15:00 AM EDT, [facility]/pharmacy #[id number], Partial fill upon patient request if the prescription is for a schedule II opioid drug., 164, cm, 07/29/23 9:02:00 EDT, Height, 85, kg, 07/26/23 14:21:00 EDT, Dry Weight Start Date: 07/29/23 Status: Ordered Quantity: 30.0 Unit: tablet Repeat number: 12 busPIRone 5 mg oral tablet 5 mg, 1, tablet, By Mouth, 2 times a day, # 60 tablet, Refills 5, Tot. Refills 5, Maintenance, 04/18/24 1:43:00 PM EST, Route to Pharmacy Electronically, [facility]/pharmacy #[id number], Partial fill upon patientrequest if the prescription is for a schedule II opioid drug., 165, cm, 04/17/24 11:58:00 EST, Height, 75.4, kg, 04/17/24 11:58:00 EST, Dry Weight Start Date: 04/18/24 Stop Date: 10/15/24 Status: Ordered Quantity: 60.0 Unit: tablet Repeat number: 6 furosemide 20 mg oral tablet 1, tablet, By Mouth, Daily, # 90 tablet, Refills 1, Tot. Refills 1, Maintenance, 01/13/24 4:07:00 PMEDT, Route to Pharmacy Electronically, [facility]/pharmacy #[id number], 165, cm, 01/07/24 11:28:00 EDT, Height, 77.7, kg, 01/07/24 11:28:00 EDT, Dry Weight Start Date: 01/13/24 Status: Ordered Quantity: 90.0 Unit: tablet Repeat number: 2 omeprazole 40 mg oral enteric coated capsule 1 capsule, By Mouth, Daily, # 90 capsule, 1 Refills, Maintenance, 04/06/24 11:40:00 AM EST, [facility]/pharmacy #[id number], 165, cm, 03/31/24 12:18:00 EST, Height, 78.6, kg, 03/31/24 11:58:00 EST, Dry Weight Start Date: 04/06/24 Status: Ordered Quantity: 90.0 Unit: capsule Repeat number: 2 potassium chloride 10 mEq oral capsule, extended release 1 capsule, By Mouth, 2 times a day, # 180 capsule, 3 Refills, Maintenance, 03/31/24 12:24:00 PM EST, [facility]/pharmacy #[id number], 165, cm, 03/31/24 12:18:00 EST, Height, 78.6, kg, 03/31/24 11:58:00 EST, Dry Weight Start Date: 03/31/24 Stop Date: 03/26/25 Status: Ordered Quantity: 180.0 Unit: capsule Repeat number: 4 valsartan 160 mg oral tablet 160 mg, 1, tablet, By Mouth, 2 times a day, # 180 tablet, Refills 3, Tot. Refills 3, Maintenance, 07/28/23 11:37:00 PM EDT, Route to Pharmacy Electronically, [facility]/pharmacy #[id number], Partial fill upon patient request if the prescription is for a schedule II opioid drug., 164, cm, 07/27/23 12:22:00 EDT, Height, 85, kg, 07/26/23 14:21:00 EDT, Dry Weight Start Date: 07/28/23 Stop Date: 07/22/24 Status: Ordered Quantity: 180.0 Unit: tablet Repeat number: 4 Problem List Condition Confirmation Course Effective Dates Status H ealth Status Informant Calcified granuloma-left upper lobe Confirmed Active Cholelithiasis Lap Ana Jan 2010 Confirmed 10/06/09 Active 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 Confirmed 10/08/21 Active COVID-19 virus infection Confirmed 04/25/21 Active Abnormal echocardiogram mild AI Grade 1 Diastolic Dysfunction Confirmed 05/17/17 Active Endometrial hyperplasia Confirmed Active Chronic GERD Confirmed Active Acute gout Confirmed Active Chronic heart failure with preserved ejection fraction (HFpEF) Confirmed Active Intracerebral hematoma cat Confirmed 07/28/23 Active Hemorrhagic stroke Confirmed Active Hiatal hernia with gastroesophageal reflux disease Confirmed Active Personal history of colonic polyps Confirmed Active HBP (high blood pressure) Confirmed Active HTN (hypertension) Confirmed Active Uncontrolled hypertension Confirmed Active Hypokalemia Confirmed Active Panic disorder Confirmed Active Recurrent sinusitis Confirmed Active Vital Signs Most recent to oldest [Reference Range]: 1 Height 165 cm (06/01/24 11:48 AM) Weight 76.4 kg (06/01/24 11:48 AM) Oxygen Saturation [94-100 %] 98 % (06/01/24 11:48 AM) Pulse Rate [55-90 bpm] 119 bpm *H* (06/01/24 11:48 AM) Body Mass Index [18.5-24.99 kg/m2] 28.06 kg/m2 *H* (06/01/24 11:48 AM) Blood Pressure [90-138/55-84 mm Hg] 135/ 70mm Hg (06/01/24 11:48 AM) Temperature [96.8-100.4 DegF] 97.5 DegF (06/01/24 11:48 AM) Mode of Delivery (Oxygen) Room air (06/01/24 11:48 AM) Blood pressure sites Arm, left (06/01/24 11:48 AM) Temperature Route Temporal (06/01/24 11:48 AM) Dry Weight 76.4 kg (06/01/24 11:48 AM) Weight Obtained Via Standing scale (06/01/24 11:48 AM) Dry Weight Obtained Via Standing scale (06/01/24 11:48 AM) Social History Social History Type Response Smoking Status Never smoker entered on: 10/26/13 Sex Sex Representation Female (finding) Note * Mel Koenig: PERFORM Event Display: Patient Education/Instruction Authored Date: [id number] Ambulatory Adult Visit Summary [facility] [address] [place] [address] Name: ILSA CHAMBERS : 1945?? Visit: 06/01/2024 11:38?? Ambulatory Visit Instructions ?? Your Care Team Primary Care Provider Jeanmarie Zambrano MD? This Visit Provider Jeanmarie Zambrano MD Your Diagnosis Acute bacterial sinusitis Vitals Signs Temperature: 97.5 DegF Height: 165 cm Pulse Rate:??119 bpm??High Weight: 76.4 kg Systolic Blood Pressure: 135 mm Hg Body Mass Index:??28.06 kg/m2??High Diastolic Blood Pressure: 70 mm Hg Body surface area: 1.87 Oxygen Saturation: 98 % ?? What to do next Scheduled Follow-Up Appointments 2024 1:00 PM EST ?? With: Jeanmarie Zambrano MD Where: [facility] [address] [place] [address]- Status: Pending Medications The list below reflects the information in our records and provided by you today along with any changes made during this visit. Please continue your medications until treatment is completed or stopped by your provider. If this is different from the information you have or there are other questions,please contact the prescribing provider. What How Much When Instructions New Doxycycline (doxycycline hyclate 100 mg oral tablet) 1 tab(s) Oral Twice a day Duration: 7 Days Pickup at [facility]/pharmacy #[id number] Unchanged Amlodipine (amLODIPine 5 mg oral tablet) 5 Milligram Oral Daily Duration: 90 Days Unchanged Atorvastatin (atorvastatin 10 mg oral tablet) 1 tab(s) Oral Daily Unchanged BusPIRone (busPIRone 5 mg oral tablet) 1 tab(s) Oral Twice a day Duration: 30 Days Unchanged Furosemide (furosemide 20 mg oral tablet) 1 tab(s) Oral Daily Unchanged Omeprazole (omeprazole 40 mg oral enteric coated capsule) 1 capsule Oral Daily Unchanged Potassium Chloride (potassium chloride 10 mEq oral capsule, extended release) 1 capsule Oral Twice a day Duration: 90 Days Unchanged Valsartan (valsartan 160 mg oral tablet) 1 tab(s) Oral Twice a day Duration: 90 Days Pharmacy Information [facility]/pharmacy #[id number]: [address] [place] [id number] [phone] Medications and Immunizations Administered Medications Given During Visit No medications given during this visit.?? Allergies (NKA means No Known Allergies) Augmentin??(diarrhea hives) Biaxin??(sick) Levaquin??(gi upset) penicillins??(rash) Common Emergency Awareness Tips IS IT A STROKE? Act FAST and Check for these signs: FACE Does the face look uneven? ARM Does one arm drift down? SPEECH Does their speech sound strange? TIME Call at any sign of stroke ?? Heart Attack Signs Chest discomfort: Most heart attacks involve discomfort in the center of the chest and lasts more than a few minutes, or goes away and comes back. It can feel like uncomfortable pressure, squeezing, fullness or pain. Discomfort in upper body: Symptoms can include pain or discomfort in one or both arms, back, neck, jaw or stomach. Shortness of breath: With or without discomfort. Other signs: Breaking out in a cold sweat, nausea, or lightheaded. Remember, MINUTES DO MATTER. If you experience any of these heart attack warning signs, call to get immediate medical attention! ?? Smoking can increase your chances of developing chronic health problems and can cause harmful effects to other family members in your house. If you smoke, you are strongly encouraged to quit. Please call [facility] flaregames Link at [phone] or [phone] ([phone]) or log in to [email or web address] for referrals to smoking cessation programs. ?? The National Suicide Prevention Hotline is available 09/11 if you or someone you know needs to find a reason to keep living. By calling 4-236-637-[employer] (4857) you'll be connected to a skilled, trained counselor at a crisis center in your area. [facility] flaregames Portal You can view and manage your care through the patient portal or by using a health care eric of your choosing. [employer] is a website that allows you to securely view your medical information including your hospital discharge summary, office visit summaries, medications and follow-up visits. You can also request appointments, renew medications, and request access to your medical information using a health care eric of your choosing, or just ask a question. You can enroll at [email or web address] or register during your next office visit. [facility], in keeping with [facility] guidance, no longer requires face masks for staff, patientsor visitors in most situations. Similiar to time spent indoors at other locations, there is the chance that you were exposed to repiratory viruses during your time with us (such as flu or COVID-19). If you develop symptoms concerning for a viral respiratory infection, please seek testing (and treatment if indicated) from your medical provider or home test kit. ?? Disclaimer: The information provided is of a general nature and is intended to be used in conjunction with the recommendations and advice of your health care practitioner. Every effort has been made to ensure that the information provided is accurate and complete at the time it is provided to you however, as your needs change, or, as new information becomes available, different or additional instructions may be required. ?? If you have questions, please consult with your primary care provider or pharmacist, as appropriate. This information is not intended to serve as substitution for assessment and evaluation by a qualified health care provider. If you do not have a primary care provider, you may find a [facility] provider by calling [facility] flaregames [facility] at [phone]. Patient Care team information Care Team Personnel Name: Jeanmarie Zambrano MD Position: [facility] Physician - Primary Care Member Role: PCP Address: [address] [place] [address] Adult [place] [address]- [employer]: Name: Yelena Boswell Position: [facility] PCO Associate Professional Member Role: [employer] Provider Address: [address] [place] [address]- [employer]: Care Team Related Persons Name: REBECCA LOYD Insurance Providers Guarantor name: ILSA CHAMBERS Health Plan Information #: 1 Payer: MEDICARE PART B OUTPT Member Number: [id number] Policy Number: NA Group Number: NA Health Plan Information #: 2 Payer: KAT ELLISON Member Number: [id number] Policy Number: NA Group Number: NA
--- OUTSIDE RECORDS SUMMARY | 2024-06-28 21:58 | XMS_ITS | Continuity of Care Document ---
Author Organization [facility] Address [address] [place] [address]- Care Team Providers Care Document Restorer Name Role Phone Juan Manuel VILLEGAS, Jeanmarie Cadena Primary Care Physician Encounter [facility] Date(s): 05/25/24 - 06/24/24 [facility] [address] [place], [place] [address] Encounter Type: Triage Allergies, Adverse Reactions, Alerts Substance Criticality Severity [...] PATIENT HANDLED PROCEDURE WELL WITH NO COMPLAINTS [facility]: [id number] 3Result Comment: [id number] 4Result Comment: [03/08/2018] [id number] 5Result Comment: [01/24/2016] QUAD 6Admin Note: FLUZONE 7Result Comment: [03/08/2018] [id number] 8Admin Note: given here Medications amLODIPine 5 mg oral tablet 5 mg, By Mouth, Daily, # 90 each, Refills 3, Tot. Refills 3, Maintenance, 09/07/23 7:39:00 AM EDT, Route to Pharmacy Electronically, [facility]/pharmacy #[id number], Partial fill upon patient request if the [...] 11 Refills, Maintenance, 07/29/23 9:15:00 AM EDT, [facility]/pharmacy #[id number], Partial fill upon patient request if [...] 1:43:00 PM EST, Route to Pharmacy Electronically, [facility]/pharmacy #[id number], Partial fill upon patientrequest if the prescription is for a schedule II opioid drug., 165, cm, 04/17/24 11:58:00 EST, Height, 75.4, kg, 04/17/24 11:58:00 EST, Dry Weight Start Date: 04/18/24 Stop Date: 10/15/24 Status: Ordered Quantity: 60.0 Unit: tablet Repeat number: 6 cefuroxime 500 mg oral tablet 1 tablet = 500 mg, By Mouth, 2 times a day, for 10 days, # 20 tablet, 0 Refills, Acute 06/25/24 1:25:00 PM EDT, 06/15/24 1:25:00 PM EST, Tablet, [facility]/pharmacy #[id number], pt can take cephalosporins ., 165, cm, 06/15/24 12:43:00 EST, Height, 76.9, kg, 06/15/24 12:43:00 EST, Dry Weight Start Date: 06/15/24 Stop Date: 06/25/24 Status: Ordered Quantity: 20.0 Unit: tablet Repeat number: 1 furosemide 20 mg oral tablet 1, tablet, By Mouth, Daily, # 90 tablet, Refills 1, Tot. Refills 1, Maintenance, 01/13/24 4:07:00 PMEDT, Route to Pharmacy Electronically, [facility]/pharmacy #[id number], 165, cm, 01/07/24 11:28:00 EDT, Height, 77.7, kg, 01/07/24 11:28:00 EDT, Dry Weight Start Date: 01/13/24 Status: Ordered Quantity: 90.0 Unit: tablet Repeat number: 2 omeprazole 40 mg oral enteric coated capsule 1 capsule, By Mouth, Daily, # 90 capsule, 1 Refills, Maintenance, 04/06/24 11:40:00 AM EST, [facility]/pharmacy #[id number], 165, cm, 03/31/24 12:18:00 EST, Height, 78.6, kg, 03/31/24 11:58:00 EST, Dry Weight Start Date: 04/06/24 Status: Ordered Quantity: 90.0 Unit: capsule Repeat number: 2 potassium chloride 10 mEq oral capsule, extended release 1 capsule, By Mouth, 2 times a day, # 180 capsule, 3 Refills, Maintenance, 03/31/24 12:24:00 PM EST, [facility]/pharmacy #[id number], 165, cm, 03/31/24 12:18:00 EST, Height, 78.6, kg, 03/31/24 11:58:00 EST, Dry Weight Start Date: 03/31/24 Stop Date: 03/26/25 Status: Ordered Quantity: 180.0 Unit: capsule Repeat number: 4 valsartan 160 mg oral tablet 160 mg, 1, tablet, By Mouth, 2 times a day, # 180 tablet, Refills 3, Tot. Refills 3, Maintenance, 07/28/23 11:37:00 PM EDT, Route to Pharmacy Electronically, [facility]/pharmacy #[id number], Partial fill upon patient request if [...] disorder Confirmed Active Recurrent sinusitis Confirmed Active Social History Social History Type Response Smoking Status Never smoker entered on: 10/26/13 Sex Sex Representation Female (finding) Patient Care team information Care Team Personnel Name: Jeanmarie Zambrano MD Position: [facility] Physician - Primary Care Member Role: PCP Address: [address] [place] [address] Adult [place] [address]- [employer]: Name: Yelena Boswell Position: [facility] PCO Associate Professional Member Role: [employer] Provider Address: [address] [place] [address]- [employer]: Care Team Related Persons Name: REBECCA LOYD Insurance Providers Guarantor name: ILSA CHAMBERS Health Plan Information #: 1 Payer: MEDICARE PART B OUTPT Member Number: NA Policy Number: NA Group Number: NA Health Plan Information #: 2 Payer: KAT ELLISON Member Number: NA Policy Number: NA Group Number: NA
--- OUTSIDE RECORDS SUMMARY | 2024-06-28 21:58 | XMS_ITS | Continuity of Care Document ---
Author Organization [facility] Address [address] [place] [address]- Care Team Providers Care Supervisor Pressing Department Name Role Phone Jeanmarie Zambrano MD Primary Care Physician [phone] Encounter [place] Date(s): 06/15/24 - 06/22/24 [facility] [address] [place], [place] [address] Attending Physician: Jeanmarie Zambrano MD Encounter Type: [...] COMPLAINTS [facility]: [id number] 3Result Comment: [id number] 4Result Comment: [03/08/2018] [id number] 5Result Comment: [01/24/2016] QUAD 6Admin Note: FLUZONE 7Result Comment: [03/08/2018] [id number] 8Admin Note: given here Medications amLODIPine 5 mg oral tablet 5 mg, By Mouth, Daily, # 90 each, Refills 3, Tot. Refills 3, Maintenance, 09/07/23 7:39:00 AM EDT, Route to Pharmacy Electronically, [facility]/pharmacy #[id number], Partial fill upon patient request if the [...] 11 Refills, Maintenance, 07/29/23 9:15:00 AM EDT, [facility]/pharmacy #[id number], Partial fill upon patient request [...] 1:43:00 PM EST, Route to Pharmacy Electronically, [facility]/pharmacy #[id number], Partial fill upon patientrequest if [...] PM EDT, 06/15/24 1:25:00 PM EST, Tablet, [facility]/pharmacy #[id number], pt can take cephalosporins ., 165, cm, 06/15/24 12:43:00 EST, Height, 76.9, kg, 06/15/24 12:43:00 EST, Dry Weight Start Date: 06/15/24 Stop Date: 06/25/24 Status: Ordered Quantity: 20.0 Unit: tablet Repeat number: 1 furosemide 20 mg oral tablet 1, tablet, By Mouth, Daily, # 90 tablet, Refills 1, Tot. Refills 1, Maintenance, 01/13/24 4:07:00 PMEDT, Route to Pharmacy Electronically, [facility]/pharmacy #[id number], 165, cm, 01/07/24 11:28:00 EDT, Height, 77.7, kg, 01/07/24 11:28:00 EDT, Dry Weight Start Date: 01/13/24 Status: Ordered Quantity: 90.0 Unit: tablet Repeat number: 2 omeprazole 40 mg oral enteric coated capsule 1 capsule, By Mouth, Daily, # 90 capsule, 1 Refills, Maintenance, 04/06/24 11:40:00 AM EST, [facility]/pharmacy #[id number], 165, cm, 03/31/24 12:18:00 EST, Height, 78.6, kg, 03/31/24 11:58:00 EST, Dry Weight Start Date: 04/06/24 Status: Ordered Quantity: 90.0 Unit: capsule Repeat number: 2 potassium chloride 10 mEq oral capsule, extended release 1 capsule, By Mouth, 2 times a day, # 180 capsule, 3 Refills, Maintenance, 03/31/24 12:24:00 PM EST, [facility]/pharmacy #[id number], 165, cm, 03/31/24 12:18:00 EST, Height, 78.6, kg, 03/31/24 11:58:00 EST, Dry Weight Start Date: 03/31/24 Stop Date: 03/26/25 Status: Ordered Quantity: 180.0 Unit: capsule Repeat number: 4 valsartan 160 mg oral tablet 160 mg, 1, tablet, By Mouth, 2 times a day, # 180 tablet, Refills 3, Tot. Refills 3, Maintenance, 07/28/23 11:37:00 PM EDT, Route to Pharmacy Electronically, [facility]/pharmacy #[id number], Partial fill upon patient request [...] Most recent to oldest [Reference Range]: 1 2 Height 165 cm (06/15/24 1:26 PM) 165 cm (06/15/24 12:43 PM) Weight 76.9 kg (06/15/24 12:43 PM) Oxygen Saturation [94-100 %] 97 % (06/15/24 12:43 PM) Pulse Rate [55-90 bpm] 86 bpm (06/15/24 12:43 PM) Body Mass Index [18.5-24.99 kg/m2] 28.25 kg/m2 *H* (06/15/24 12:43 PM) Blood Pressure [90-138/55-84 mm Hg] 134/ 50mm Hg (06/15/24 1:26 PM) 141/76mm Hg *H* (06/15/24 12:43 PM) Mode of Delivery (Oxygen) Room air (06/15/24 12:43 PM) Blood pressure sites Arm, left (06/15/24 12:43 PM) Dry Weight 76.9 kg (06/15/24 12:43 PM) Weight Obtained Via Standing scale (06/15/24 12:43 PM) Dry Weight Obtained Via Standing scale (06/15/24 12:43 PM) Social History Social History Type Response Smoking Status Never smoker entered on: 10/26/13 Sex Sex Representation Female (finding) Note * Katherine Soriano: PERFORM Event Display: Patient Education/Instruction Authored Date: [id number] Ambulatory Adult Visit Summary [facility] [address] [place] [address] Name: ILSAOlga Lidia CHAMBERS : 1945?? Visit: 06/15/2024 12:40?? Ambulatory Visit Instructions ?? Your Care Team Primary Care Provider Juan Manuel VILLEGASJeanmarie? This Visit Provider Jeanmarie Zambrano MD Your Diagnosis Acute bacterial sinusitis Vitals Signs Pulse Rate: 86 bpm Height: 165 cm Systolic Blood Pressure: 134 mm Hg Weight: 76.9 kg Diastolic Blood Pressure:??50 mm Hg??Low Body Mass Index:??28.25 kg/m2??High Oxygen Saturation: 97 % Body surface area: 1.88 What to do next Scheduled Follow-Up Appointments Wednesday 11:00 AM EDT ?? With: Jeanmarie Zambrano MD Where: [facility] [address] [place] [address]- Status: Pending Medications The list below reflects the information in our records and provided by you today along with any changes made during this visit. Please continue your medications until treatment is completed or stopped by your provider. If this is different from the information you have or there are other questions,please contact the prescribing provider. What How Much When Instructions New Cefuroxime (cefuroxime 500 mg oral tablet) 1 tab(s) Oral Twice a day Duration: 10 Days Pickup at [facility]/pharmacy #[id number] Unchanged Amlodipine (amLODIPine 5 mg oral [...] a day Duration: 90 Days Pharmacy Information [facility]/pharmacy #[id number]: [id number] [place] [id number] [phone] Medications and Immunizations Administered Medications Given During [...] are strongly encouraged to quit. Please call [facility] at [phone] or [phone] ([phone]) or log in to [email or web address] for referrals to smoking cessation programs. ?? The National Suicide Prevention Hotline is available 09/11 if you or someone you know needs to find a reason to keep living. By calling 7-640-002-iLinc (2297) you'll be connected to a skilled, trained counselor at a crisis center in your area. [facility] Portal You can view and manage your care through the patient portal or by using a health care eric of your choosing. [email or web address] is a website that allows you to securely view your medical information including your hospital discharge summary, office visit summaries, medications and follow-up visits. You can also request appointments, renew medications, and request access to your medical information using a health care eric of your choosing, or just ask a question. You can enroll at [email or web address] or register during your next office visit. [facility], in keeping with [facility] guidance, no longer requires face masks [...] primary care provider, you may find a [facility] provider by calling [facility] at [phone]. Patient Care team information Care Team Personnel Name: Jeanmarie Zambrano MD Position: [facility] Physician - Primary Care Member Role: PCP Address: [address] [place] [address] Adult [place] [address]- Telecom: Name: Yelena Boswell Position: [facility] PCO Associate Professional Member Role: [employer] Provider Address: [address] [place] [address]- [place] Telecom: Care Team Related Persons Name: REBECCA LOYD Insurance Providers Guarantor name: ILSA CHAMBERS Health Plan Information #: 1 Payer: MEDICARE PART B OUTPT Member Number: [id number] Policy Number: NA Group Number: NA Health Plan Information #: 2 Payer: KAT ELLISON Member Number: [id number] Policy Number: NA Group Number: NA
--- OUTSIDE RECORDS SUMMARY | 2024-06-28 21:58 | XMS_ITS | Patient Health Record ---
[facility] Organization [facility] Address [address] [place] [address] Care Team Providers Care Submarine Advisory Team Watch Officer Name Role Phone Julianne Marmolejo Unavailable [phone] Allergies Allergen (clinical drug ingredient) Drug/Non Drug Allergy documented on EMR Reaction Allergy Type Onset Date Status diphenhydramine Antihistamine Unknown Drug Allergy Active Penicillin hives Drug Allergy Active Reason For Referral No Information Medications Medication SIG (Take, Route, Fr equency, Duration) Notes Start Date End Date Status Potassimin 75 MG 1 tablet Orally Once a day Active Omeprazole 10 MG 2 capsules Orally Once a day Active Triamterene 100 MG 1 capsule Orally Once a day Active Walking Boot/Pneumatic As directed Wear Daily for Until further notice 08/31/2017 Active Latanoprost 0.005 % 1 drop into affected eye in the evening Ophthalmic Once a day Active ZyrTEC Allergy 10 MG 1 tablet as needed Orally Once a day Active Social History Tobacco use other than smoking: Question Answer Notes Are you an other tobacco user? No Problems No Known Problems Plan Of Treatment Pending Test Test Name Order Date X ray : Foot, left 3V 08/31/2017 X ray : Foot, left 3V 09/21/2017 [id number], Toes 08/31/2017 Next Appt Details Provider Name:Julianne yip, 08/09/2024 10:30:00 AM, [address] [place], [address], Insurance Providers Payer Name Payer Address Payer Phone Subscriber Number Group Number Insured Name Patient Relationship to Insured Coverage Start Date Coverage End Date Medicare [facility] [employer] [address] [place] [phone] [id number] Joyce Penn Self - patient is the insured [place] [address] ÁNGEL Sheppard [phone] [id number] Joyce Penn Self - patient is the insured Medical (General) History Medical History History ICD Code High blood pressure Reflux chronic sinusitis Measles Mumps Surgical History Surgery Date(Month/Year) cholecystectomy 01/2010 Hospitalization History Reason Date(Month/Year) [facility]-chest pain 04/30/17
--- OUTSIDE RECORDS SUMMARY | 2024-06-28 21:58 | XMS_ITS | Continuity of Care Document ---
Author Organization [facility] Address [address] [place] [address]- Care Team Providers Care Supervisor Specialty Plant Name Role Phone Jeanmarie Zambrano MD Primary Care Physician [phone] Encounter [facility] Date(s): 03/31/24 - 06/23/24 [facility] [address] [place], [place] [address] Attending Physician: Jeanmarie Zambrano MD Encounter Type: Pre Office Visit Allergies, Adverse Reactions, Alerts Substance [...] PATIENT HANDLED PROCEDURE WELL WITH NO COMPLAINTS [facility]: [id number] 3Result Comment: [id number] 4Result Comment: [03/08/2018] [id number] 5Result Comment: [01/24/2016] QUAD 6Admin Note: FLUZONE 7Result Comment: [03/08/2018] [id number] 8Admin Note: given here Medications amLODIPine 5 mg oral tablet 5 mg, By Mouth, Daily, # 90 each, Refills 3, Tot. Refills 3, Maintenance, 09/07/23 7:39:00 AM EDT, Route to Pharmacy Electronically, [facility]/pharmacy #[id number], Partial fill upon patient request if the [...] 11 Refills, Maintenance, 07/29/23 9:15:00 AM EDT, [facility]/pharmacy #[id number], Partial fill upon patient request if [...] 1:43:00 PM EST, Route to Pharmacy Electronically, [facility]/pharmacy #[id number], Partial fill upon patientrequest if the [...] PM EDT, 06/15/24 1:25:00 PM EST, Tablet, [facility]/pharmacy #[id number], pt can take cephalosporins ., 165, cm, 06/15/24 12:43:00 EST, Height, 76.9, kg, 06/15/24 12:43:00 EST, Dry Weight Start Date: 06/15/24 Stop Date: 06/25/24 Status: Ordered Quantity: 20.0 Unit: tablet Repeat number: 1 furosemide 20 mg oral tablet 1, tablet, By Mouth, Daily, # 90 tablet, Refills 1, Tot. Refills 1, Maintenance, 01/13/24 4:07:00 PMEDT, Route to Pharmacy Electronically, [facility]/pharmacy #[id number], 165, cm, 01/07/24 11:28:00 EDT, Height, 77.7, kg, 01/07/24 11:28:00 EDT, Dry Weight Start Date: 01/13/24 Status: Ordered Quantity: 90.0 Unit: tablet Repeat number: 2 omeprazole 40 mg oral enteric coated capsule 1 capsule, By Mouth, Daily, # 90 capsule, 1 Refills, Maintenance, 04/06/24 11:40:00 AM EST, [facility]/pharmacy #[id number], 165, cm, 03/31/24 12:18:00 EST, Height, 78.6, kg, 03/31/24 11:58:00 EST, Dry Weight Start Date: 04/06/24 Status: Ordered Quantity: 90.0 Unit: capsule Repeat number: 2 potassium chloride 10 mEq oral capsule, extended release 1 capsule, By Mouth, 2 times a day, # 180 capsule, 3 Refills, Maintenance, 03/31/24 12:24:00 PM EST, [facility]/pharmacy #[id number], 165, cm, 03/31/24 12:18:00 EST, Height, 78.6, kg, 03/31/24 11:58:00 EST, Dry Weight Start Date: 03/31/24 Stop Date: 03/26/25 Status: Ordered Quantity: 180.0 Unit: capsule Repeat number: 4 valsartan 160 mg oral tablet 160 mg, 1, tablet, By Mouth, 2 times a day, # 180 tablet, Refills 3, Tot. Refills 3, Maintenance, 07/28/23 11:37:00 PM EDT, Route to Pharmacy Electronically, [facility]/pharmacy #[id number], Partial fill upon patient request if [...] Team Personnel Name: Jeanmarie Zambrano MD Position: [facility] Physician - Primary Care Member Role: PCP Address: [address] [place] [address] Adult & [place] [address]- [place] Telecom: Name: Yelena Boswell Position: [facility] PCO Associate Professional Member Role: [employer] Consult[employer] Provider Address: [address] [place] [address] Telecom: Care Team Related Persons Name: REBECCA LOYD Insurance Providers Guarantor name: ILSA CHAMBERS Health Plan Information #: 2 Payer: KAT ELLISON Member Number: [id number] Policy Number: NA Group Number: NA Health Plan Information #: 1 Payer: MEDICARE PART B OUTPT Member Number: [id number] Policy Number: NA Group Number: NA
--- OUTSIDE RECORDS SUMMARY | 2024-06-28 21:58 | XMS_ITS | Data Portability ---
Author Organization [facility], [address] Address [address] [place] [address] Care Team Providers Care Group Tester Name Role Phone AMMON HIGGINS Primary Care Provider [phone] Assessment No assessment recorded. Plan of Treatment Reminders Order Date Submit Date Provider Last Modified By Organization Details Last Modified Time Details Appointments None recorded. Lab None recorded. Referral emergency medicine referral - chest pain x 1 day . radiation left shoulder . Normal EKG. need to rule out acute TX . need further evaluation. 2023 024 [email or web address] [address] [facility], [address] [place], [address], 15:32:38 Procedures None recorded. Surgeries None recorded. Imaging electrocard iogram 2023 024 [email or web address] [facility] [address], [address] [place], [address], 07:54:50 Medication Orders None recorded. Patient TargetsNo targets recorded. Patient Instructions Encounter Date Encounter Id Patient Instructions Last Modified By Organization Details Last Modified Time 11/04/2023 [id number] chest pain: care instructions [email or web address] Not available 11/04/2023 15:24:51 Reason for Referral Emergency Medicine Referral for Chest pain chest pain x 1 day . radiation left shoulder . Normal EKG. need to rule out acute TX . need further chest pain x 1 day . radiation left shoulder . Normal EKG. need to rule out acute TX . need further evaluation. Referring Physician: Cholo Vitale, Urgent Care, Encounter Date: 11/04/2023 Results Created Date Observation Date Name Description Value Unit Range Abnormal Flag Note LastModifiedBy Organization Detail LastModifiedTime 11/04/19 24 [facility] [place] binu diogr am No observ ation record ed. [email or web address] Not Available 10/17 18:32:42 11/08/19 24 11/08/2023 elect binu diogr am No observ ation record ed. JERRY [address] [place], [address], 11/08/2023 07:54:48 Result Notes None recorded. Problems Name Problem SNOMED Code Status Onset Date Resolution Date Notes Provider Name and Address Organization Details Recorded Time Chest pain 91139271 Active 024 Cholo Vitale NP [address] [place], [address] , [place] - [facility] 11/04/2023 15:23:12 Problem Notes None recorded. Procedures Surgical History Date Name Laterality Status Provider Name and Address Organization Details Recorded Time cholecystectomy completed Carol Laguna PA - [facility] 11/04/2023 14:51:53 Imaging Results Imaging Date Name Status LastModified by Organization Details LastModified Time 11/04/2023 electrocardiogram completed [email or web address] Inform ation not available 11/04/2023 18:32:42 11/08/2023 electrocardiogram completed JERRY [address] [place], [address], 11/08/2023 07:54:48 Procedure Notes None recorded. Medical Equipment None Reported. Allergies No known drug allergies Medications Name Sig Start Date Stop Date Status Note LastModified by Organization Details LastModified Time buspirone 5 mg tablet TAKE 1 TABLET BY MOUTH TWICE DAILY. active Not Available Not Available No t Available potassium chloride ER 10 mEq capsule,ext ended release TAKE 1 CAPSULE BY MOUTH EVERY DAY active Not Available Not Available No t Available trazodone 50 mg tablet TAKE 1 TABLET BY MOUTH DAILY AT BEDTIME *TRY HALF A TABLET FOR THE FIRST 3 NIGHTS active Not Available Not Available No t Available atorvastati n 10 mg tablet TAKE 1 TABLET BY MOUTH EVERY DAY active Not Available Not Available No t Available cefpodoxime 200 mg tablet TAKE 1 TABLET BY MOUTH EVERY 12 HOURS FOR 7 DAYS 11/03 completed Not Available Not Available Not Available amlodipine 5 mg tablet TAKE 1 TABLET BY MOUTH EVERY DAY FOR 90 DAYS active Not Available Not Available No t Available omeprazole 40 mg capsule,del ayed release TAKE 1 CAPSULE BY MOUTH EVERY DAY active Not Available Not Available No t Available benzonatate 100 mg capsule TAKE 1 CAPSULE BY MOUTH 3 TIMES A DAY,X7 DAYS NEEDED FOR COUGH DO NOT CRUSH OR CHEW 11/03 completed Not Available Not Available Not Available valsartan 320 mg tablet TAKE 1 TABLET BY MOUTH EVERY DAY active Not Available Not Available No t Available furosemide 20 mg tablet TAKE 1 TABLET BY MOUTH EVERY DAY active Not Available Not Available No t Available doxycycline hyclate 100 mg tablet PLEASE SEE ATTACHED FOR DETAILED DIRECTION S active Not Available Not Available No t Available valsartan 160 mg tablet TAKE 1 TABLET BY MOUTH TWICE A DAY active Not Available Not Available No t Available Laxative (bisacodyl) 5 mg tablet,mario yed release TAKE 1 TABLET BY MOUTH EVERY DAY active Not Available Not Available No t Available Gavilax 17 gram/dose oral powder DISSOLVE AND TAKE 17 GM BY MOUTH DAILY, FOLLOW THE INSTRUCTI ONS PROVIDED TO YOU active Not Available Not Available No t Available Vitals Date Recorded Oxygen saturation Oxygen saturation in Arterial blood by Pulse oximetry Heart rate Body temperature Body height Body mass index (BMI) Body weight Pain severity - 0-10 verbal numeric rating [Score] - Reported Respiratory rate Systolic blood pressure Diastolic blood pressure Provider Name and Address Organization Details Last Updated DateTime 4 97 % 97 % 88 /min 97.9 [degF] 165.1 cm 27 kg/m2 74347.9 6 g 1 17 /min 186 mm[Hg] 88 mm[Hg] Carol Hernandez [facility] 14:48:14 Social History Question Answer Notes LastModified by Organizat ion Details LastModified Time Tobacco Smoking Status Never Smoker [facility] Dejesus [facility] 11/04/2023 14:52:14 What Is Your Level Of Alcohol Consumption? None [email or web address] Information not available 11/04/2023 Are You Currently Employed? No [email or web address] Information not available 11/04/2023 Have You Had A Flu Shot This Season? Yes [email or web address] Information not available 11/04/2023 If No, Would You Like A Flu Shot Today? No Information not available 11/04/2023 What Is Your Relationship Status? [email or web address] Information not available 11/04/2023 Are You Passively Exposed To Smoke? No [email or web address] Information no t available 11/04/2023 Have You Recently Traveled Abroad? No Information not available 11/04/2023 Do You Or Have You Ever Used Any Other Forms Of Tobacco Or Nicotine? No [email or web address] Information not available 11/04/2023 Sex: Unknown Functional Status None recorded. Mental Status None recorded. Family History Nothing Reported. Medical History No medical history recorded. Gynecological HistoryNo gynecological history recorded. Obstetrics History GPAL:G 0 P 0 0 0 0 Immunizations Vaccine Type Date Status Note Provider Nam e and Address Organization Details Recorded Time Influenza, split virus, quadrivalent, preservative 7 completed Carol Laguna null, [place] - [facility] 11/04/2023 14:50:12 Influenza, split virus, quadrivalent, preservative 9 completed Carol Laguna null, [place] - [facility] 11/04/2023 14:50:12 Influenza, split virus, quadrivalent, preservative 8 completed Carol Laguna null, [place] - [facility] 11/04/2023 14:50:12 COVID-19, mRNA, LNP-S, PF, 100 mcg/0.5mL dose or 50 mcg/0.25mL dose 2 completed Carol Laguna null, [place] - [facility] 11/04/2023 14:50:12 COVID-19, mRNA, LNP-S, PF, 100 mcg/0.5mL dose or 50 mcg/0.25mL dose 1 completed Carol Laguna null, [place] - [facility] 11/04/2023 14:50:12 COVID-19, mRNA, LNP-S, PF, 100 mcg/0.5mL dose or 50 mcg/0.25mL dose 1 completed Carolbhumi Mccoyes null, PA - [facility] 11/04/2023 14:50:12 COVID-19, mRNA, LNP-S, PF, 100 mcg/0.5mL dose or 50 mcg/0.25mL dose 2 completed Carol Laguna null, [place] - [facility] 11/04/2023 14:50:12 Pneumococcal conjugate PCV20, polysaccharide [id number] conjugate, adjuvant, PF 3 completed Carol Laguna null, PA - [facility] 11/04/2023 14:50:12 influenza, unspecified formulation 2 completed Carol Laguna null, PA - [facility] 11/04/2023 14:50:12 Tdap 3 completed Carol Laguna null, PA - [facility] 11/04/2023 14:50:12 pneumococcal, unspecified formulation 5 completed Carol Laguna null, [place] - [facility] 11/04/2023 14:50:12 Influenza, split virus, trivalent, preservative 3 completed Carol Laguna null, PA - [facility] 11/04/2023 14:50:12 Influenza, split virus, trivalent, preservative 4 completed Carol Laguna null, PA - [facility] 11/04/2023 14:50:12 Influenza, split virus, trivalent, preservative 5 completed Carol Laguna null, [place] - [facility] 11/04/2023 14:50:12 Influenza, split virus, trivalent, preservative 1 completed Carol Laguna null, [place] - [facility] 11/04/2023 14:50:12 Influenza, split virus, trivalent, preservative 3 completed Carol Laguna null, [place] - [facility] 11/04/2023 14:50:13 Td (adult), 2 Lf tetanus toxoid, preservative free, adsorbed 2 completed Carol Laguna null, [place] - [facility] 11/04/2023 14:50:13 Influenza, split virus, quadrivalent, PF 6 completed Carol Laguna null, [place] - [facility] 11/04/2023 14:50:13 Past Encounters Encounter ID Performer Location Encounter Start Date Encounter Closed Date Diagnosis/Indication Diagnosis SNOMED-CT Code Diagnosis ICD10 Code Diagnosis Note [id number] [address] [facility] [place] [address] 09/25/2020 15:33:46 09/25/2020 16:10:01 [id number] [place] [address] [facility] [address] 11/04/2023 14:43:24 11/04/2023 15:32:38 Chest pain 32018181 R07.9 If you have any kind of chest discomfort , even if it is difficult to describe (sometimes it can feel like bloating or nausea), and especially if the pain radiates down either arm, to the back, or up your neck or if it is associated with sweating, trouble breathing, dizziness, or nausea/vom iting, please go directly to the Emergency Room (ER) to be checked out. The ER is the only place that can completely rule out a heart attack or blood clot in your lungs. A normal-eric earing EKG DOES NOT rule out a heart attack. Health Concerns Section Related Observation LastModified by Organization Detai ls LastModified Time None Recorded Concern Status LastModified by Organization Details LastModified Time None Recorded Advance Directives Directive None Recorded Payers Encounter Date Sequence Insurance Name Policy Number Policy Andrews Covered Member ID Andrews Member ID Guarantor Name 09/25/2020 1 [place] [employer] Joyce Penn [id number] Joyce Penn 09/25/2020 2 [facility] Joyce Penn [id number] Joyce Penn 11/04/2023 1 [place] [employer] Joyce Penn [id number] Joyce Penn 11/04/2023 2 [facility] Joyce Penn [id number] Joycetheodora Penn Notes Date Note Type Note Provider Name and Address Organization Details Recorded Time text/html Chest PainReported bypatient.source of patient informationInformation obtained from patient; Patient arrived at Urgent Care ambulatory; learning styles: auditory; left chest pain x 1 day radiating to left shoulder . had stroke 3 months ago but no residual effects. comes with daughter for further evaluation . no SOB or respiratory distress. Location:chest; left arm; middle scapular;radiates to the back Quality:pressure;aching Severity:moderate Duration:started 1 days ago Onset/Timing:intermittent Context:exertional;occurs with emotional stress;occurs with physical stress;positional Alleviating Factors:relieved with rest Aggravating Factors:worse with activity;worse with stress/emotional upset Associated Symptoms:no dyspnea; no decrease in exercise capacity; no fatigue; no nocturnal episodes; no resting episodes; no associated palpitations; no associated dizziness;chest discomfort Cholo Vitale NP [address] [place], [address], [place] - [facility] 11/08/2023 07:55:06 OBGyn Episode No OBEpisode recorded.
[2024-06-28 22:11] LABS: Anion Gap 10 (12-20); Blood Urea Nitrogen 14 mg/dL (9-16); Calcium 9.5 mg/dL (8.4-10.2); Carbon Dioxide 23 mmol/L (22-29); Chloride 114 mmol/L (96-108); Creatinine Clr Calc Pharmacy 53.9; Estimated Glomerular Filt Rate > 60; Glucose Random 105 mg/dL (60-115); Potassium 3.8 mmol/L (3.3-5.1); Sodium 143 mmol/L (135-145)
[2024-06-28 22:22] LABS: Troponin-I High Sensitivity < 2.7 ng/L (<3.5-17.0)
[2024-06-28 23:36] VITALS: BP 154/78; PULSE 77; PULSE 78; RESP 20; TEMP 36.7; O2SAT 99
--- NOTE | 2024-06-28 23:38 | PC.NURSE ---
pt a&ox4, respirations even and unlabored. 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 pt denies n/v. pt reports she has had this pain in the past but is unsure what it was. pt nsr on tele 78-80bpm. pt awaiting provider.
--- NOTE | 2024-06-28 23:59 | PC.NURSE ---
20g placed in left ac, pt states she can not have tegaderm due to allergic reaction on the skin, tape placed on IV to secure it.
[2024-06-29 00:23] LABS: Troponin-I High Sensitivity < 2.7 ng/L (<3.5-17.0)
--- NOTE | 2024-06-29 02:37 | ED.CHESTPAIN ---
HPI - Chest Pain General Chief Complaint: Chest Pain Stated Complaint: Chest Pain Time Seen by Provider: 06/29/24 02:24 Source: patient Limitations: no limitations History of Present Illness ED Provider: Megan James PA-C HPI narrative: 78-year-old female with chronic left neck, shoulder and anterior chest discomfort, presents with pain within this distribution. Patient states she has had this discomfort over the past 2 days, it has been intermittent. Patient does say that she did some heavy lifting prior to the onset of her symptoms. Denies recent cough or cold symptoms, no diaphoresis, nausea, vomiting or shortness of breath when the pain occurs. Pain reproducible with movement of the shoulder or palpation of the chest wall within this region. Related Data Previous Rx's ?Medication ?Instructions ?Recorded methocarbamol 750 mg tablet 750 mg PO Q8H PRN pain #10 tabs 06/29/24 Allergies Allergy/AdvReac Type Severity Reaction Status Date / Time Penicillins [PCN] Allergy Unknown Verified 06/28/24 21:33 transparent dressing Allergy Rash Verified 06/29/24 00:00 [Tegaderm] Review of Systems Review of Systems: Yes all other systems are reviewed and are negative Constitutional: Constitutional: Denies fatigue and Denies fever(s) Cardiovascular: Cardiovascular: Reports chest pain and Denies dyspnea Respiratory: Respiratory: Denies cough and Denies dyspnea Gastrointestinal: Gastrointestinal: Denies abdominal pain, Denies nausea and Denies vomiting Endocrine: Endocrine: Denies fatigue [facility] Past Medical History Attestation statement: The following information was validated with the patient. Social History Social History Smoked in Last 30 Days: No Use of substances other than those prescribed or required for medical reasons: No Advance Directives: No Advance Directives Information Provided: Yes Do you have a plan to hurt others: No Plan Physical Exam Vital Signs: Vital Signs: Last Vital Signs Temp 98.0 F 06/28/24 23:36 Pulse 77 06/28/24 23:36 Resp 20 06/28/24 23:36 BP 154/78 H 06/28/24 23:36 Pulse Ox 99 06/28/24 23:36 O2 Del Method Room Air 06/28/24 23:36 BMI result Body Mass Index 27.8 Const: Other: Alert well-appearing Orientation/consciousness: patient oriented x3 Chest: Other: Pain elicited with palpation of the anterior shoulder Resp: Effort & Inspection: normal respiratory effort Cardio: Other: Normal peripheral perfusion Skin: Other: Warm dry no rash Neuro: General: patient oriented x3, gait normal, no focal motor deficits and CN's II-XI intact bilaterally Psych: Other: Cooperative Medical Decision Making Medical Decision Making [facility] Narrative: 78-year-old female with chronic left neck, shoulder and anterior chest discomfort, presents with pain within this distribution. Patient states she has had this discomfort over the past 2 days, it has been intermittent. Patient does say that she did some heavy lifting prior to the onset of her symptoms. Denies recent cough or cold symptoms, no diaphoresis, nausea, vomiting or shortness of breath when the pain occurs. Pain reproducible with movement of the shoulder or palpation of the chest wall within this region. Problem: Chronic shoulder neck and chest pain History: Per patient I have considered the following differential diagnoses: ACS, chest wall strain, arthritis, costochondritis, pneumonia Plan: Screening labs including 2 cardiac enzymes, EKG and chest x-ray were obtained, everything is negative. Her exam and symptoms are consistent with her chronic musculoskeletal discomfort. She is asking for a muscle relaxant. Least likely to be costochondritis given she has not had preceding viral syndrome. She does not have a cough or fever to suggest pneumonia. I have independently reviewed the following tests: Labs: No leukocytosis, not anemic, no electrolyte abnormality, troponin negative x2 EKG: Normal sinus rhythm, rate of 99, no ischemic changes no ectopy QTC 433 Chest x-ray:Findings: No consolidation or effusion. No pneumothorax mild emphysematous changes. Cardiac silhouette and mediastinal contours at the upper limits of normal. Degenerative changes include imaged shoulders and AC joints. Surgical clips are noted in the imaged abdomen. IMPRESSION: No consolidation. Lab Data 06/28/24 21:47 06/28/24 21:47 Labs: Lab Results 06/28/24 06/28/24 Range/Units 21:47 23:58 WBC 5.7 (4.8-10.8) X10*3/uL RBC 4.15 L (4.20-5.50) X10*6/uL Hgb 12.9 (12.0-16.0) g/dl Hct 35.6 L (37.0-47.0) % MCV 85.8 (80.0-98.0) fL MCH 31.1 (27.0-33.0) pg MCHC 36.2 H (31.0-35.0) g/dl RDW 13.6 (11.0-16.0) % Plt Count 145 L (160-400) X10*3/uL MPV 10.3 (9.4-12.3) fL Immature Gran % (Auto) 0.4 (0.0-0.4) % Neut % (Auto) 34.6 L (45-73) % Lymph % (Auto) 49.2 H (20-40) % Kent % (Auto) 11.5 H (2-11) % Eos % (Auto) 3.2 (0-4) % Baso % (Auto) 1.1 (0-2) % Lymph # (Auto) 2.8 (1.2-4.9) X10*3/uL Kent # (Auto) 0.7 (0.1-1.2) X10*3/uL Eos # (Auto) 0.2 (0.0-0.4) X10*3/uL Baso # (Auto) 0.1 (0.0-0.2) X10*3/uL Abs Immat Gran (auto) 0.02 (0.00-0.03) X10*3/uL Absolute Neuts (auto) 2.0 (2.0-8.3) x10*3/uL Absolute Nucleated RBC 0.000 (0.0-0.012) X10*3/uL Nucleated RBC % (auto) 0.0 (0.0-0.2) /100WBC Sodium 143 (135-145) mmol/L Potassium 3.8 (3.3-5.1) mmol/L Chloride 114 H (96-108) mmol/L Carbon Dioxide 23 (22-29) mmol/L Anion Gap 10 L (12-20) BUN 14 (9-16) mg/dL Creatinine 0.89 (0.5-1.4) mg/dL Estim Creat Clear Calc 53.9 Estimated GFR > 60 Random Glucose 105 (60-115) mg/dL Calcium 9.5 (8.4-10.2) mg/dL Troponin I High Sens < 2.7 < 2.7 (<3.5-17.0) ng/L Discharge Plan Discharge Clinical Impression: Chest wall pain Patient Disposition: Home, Self-Care Instructions: Chest Wall Pain (ED) Additional Instructions: Your exam and your symptoms are most consistent with chest wall pain. See home care instructions. Use the methocarbamol as needed for your discomfort, to note this is a muscle relaxant, it will cause drowsiness, do not drive or operate machinery while taking the medication. All of your screening labs including 2 cardiac enzymes were negative, the chest x-ray is clear and there were no concerning changes on her EKG. Follow up with your primary care provider as needed. Prescriptions: New methocarbamol 750 mg tablet 750 mg PO Q8H PRN (Reason: pain) Qty: 10 0RF Print Language: Omani
[2024-06-29] MEDS: methocarbamoL 750 MG TABLET PO (03:03)
[2024-06-29 03:14] VITALS: BP 154/78; PULSE 77; RESP 20; TEMP 36.7; O2SAT 99
== END 2024-06-29 03:14 | disposition home or self-care (01) ==
PROVIDERS: Emergency Provider Emergency Medicine; PCP Internal Medicine
DX: R07.89 Other chest pain (principal); M54.2 Cervicalgia; M25.512 Pain in left shoulder; Z79.899 Other long term (current) drug therapy
CPT/HCPCS: 36415; 71046; 80048; 84484; 85025; 93005; 99283; 99285

== ENCOUNTER → 2024-06-28 21:11 | Outpatient (BNV) | payer MEDICARE, OTHER, SELFPAY | PROVIDERS: Emergency Provider Emergency Medicine; PCP Internal Medicine; Visit Provider Internal Medicine | DX: R94.31 Abnormal electrocardiogram [ECG] [EKG] (principal); R07.9 Chest pain, unspecified | CPT/HCPCS: 93010 ==

== ENCOUNTER → 2024-06-28 21:34 | Outpatient (BNV) | payer MEDICARE, OTHER, SELFPAY | PROVIDERS: PCP Internal Medicine; Visit Provider Radiology Neuroradiology | DX: R07.9 Chest pain, unspecified (principal) | CPT/HCPCS: 71046 ==

== ENCOUNTER 2025-04-10 15:07 | Outpatient (REF) | payer MEDICARE, OTHER, SELFPAY ==
--- OUTSIDE RECORDS SUMMARY | 2025-04-10 16:43 | XMS_ITS | Data Portability ---
Author Organization [place] - [facility],, JODY BLANKENSHIP MD Address [address] [facility] [address] [place] [address] Care Team Providers Care Fraud Representative Name Role Phone AMMON HIGGINS OTHER Assessment No assessment recorded. Plan of Treatment Reminders Order Date Submit Date Provider Last Modified By Organization Details Last Modified Time Details Appointments None recorded. Lab biopsy, endometri al 2023 024 [email or web address] [facility] (Centralized Electronic Ordering - All Locations), Patient Can Go To The Location Of Their Choice, [id number] 4 07:41:16 wet mount, vaginal 2023 024 [email or web address] 1 In-Office Order, Internal Use Only DO Not Attach Compendium DO Not Attach Compendium, Do Not Delete/merge, [id number] 4 13:59:24 urinalysi s, dipstick, auto 2022 023 [email or web address] 1 In-Office Order, Internal Use Only DO Not Attach Compendium DO Not Attach Compendium, Do Not Delete/merge, [id number] 3 11:37:37 culture, urine 2022 023 JERRY [facility] (Centralized Electronic Ordering - All Locations), Patient Can Go To The Location Of Their Choice, [address] 3 09:01:04 pap test, thinprep, cervical 2022 023 [email or web address] [facility] (Centralized Electronic Ordering - All Locations), Patient Can Go To The Location Of Their Choice, [address] 3 07:28:09 biopsy, endometri al - endometri al cells on pap 2020 021 [facility], [address], [place], [address], 1 07:32:58 Referral gynecolog ic oncologis t referral - 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 Imaging MAMMO, screening , digital, bilateral - Breast Aspiratio n and/or Biopsy if needed 2023 024 [facility] Orders, [address], [address], [place], [address], 4 10:27:38 bone density 2023 024 [email or web address], [address], [address], [place], [address], 4 07:31:33 US, pelvis, transabdo glenda + transvagi nal - left sided pelvic pain intermitt ently for 3 to [address] [facility] ([facility]), [address] [facility], [place], [address], 4 16:03:45 MAMMO, screening , digital, bilateral 2022 023 JERRY [facility] Imaging Orders, [address], [address], [place], [address], 3 18:25:29 bone density 2022 023 [email or web address] [facility] Imaging Orders, [address], [address], [place], [address], 4 07:24:55 Medication Orders None recorded. Patient TargetsNo targets recorded. Patient Instructions Encounter Date Encounter Id Patient Instructions Last Modified By Organization Details Last Modified Time 03/20/2021 [id number] postmenopausal bleeding information Not available 03/20/2021 14:11:34 endometrial biop sy: about this test Not available 03/20/2021 14:11:34 She is here for emb after recent pap had endometrial cells. Her cervix is stenotic/closed. The cervix required dilation from closed, but she tolerated this well, and no evidence of false passage. Await results. Not available 03/20/2021 14:12:33 04/22/2022 [id number] urinary tract infection in women information Not [...] the breast. Not available 04/22/2022 11:39:19 06/10/2023 [id number] atrophic vaginit is: care instructions Not available [...] the breast. Not available 06/10/2023 14:01:31 06/23/2023 [id number] postmenopausal bleeding information Not available 06/23/2023 11:28:39 [...] questions answered. Not available 06/23/2023 11:29:57 06/30/2023 [id number] This visit is a phone telehealth visit. The patient consented to the visit by phone. The patient was at home at the time of the call and the provider and patient were the only people on the line. I was at [address] [place] [address], [address], [place], [place], at the time of the call. [...] this time. We will refer her to [facility] oncology as they may have a different [...] M.D. , Patho logis t (Case elect laurynteddy sophia beltrane d 03 24 2021) Pre-O p/Cli nical [...] s, x2. ROMERO Physi cians : ZACH LARA/ [phone] Not Available [facility], Cytopathology Service [address] [facility], [place], [address], 03/24/2021 13:46:36 04/22/1904/22/2022 URINE CULTU RE specimen description URINE Not [...] 09:01:04 04/22/19 23 04/25/2022 URINE CULTU RE method METHOD MIN. INHIB. CONC. (MCG/M L) Not Available [facility] (Centralized Electronic Ordering - All Locations) Patient Can Go To The Location Of Their Choice, 04/25/2022 09:01:04 04/22/19 23 04/25/2022 URINE CULTU RE ampicillin AMPICI LLIN SUSCEP [...] 09:01:04 04/22/19 23 04/25/2022 URINE CULTU RE cefazolin CEFAZO TREVIN SUSCEP TIBLE susceptib le Not Available [facility] (Centralized Electronic Ordering - All Locations) Patient Can Go To The Location Of Their Choice, 04/25/2022 09:01:04 04/22/19 23 04/25/2022 URINE CULTU RE cefepime CEFEPI ME SUSCEP [...] Choice, 04/25/2022 09:01:04 04/22/1904/25/2022 URINE CULTU RE ciprofloxaci n CIPROF LOXACI N SUSCEP TIBLE susceptib le Not Available [facility] (Centralized Electronic Ordering - All Locations) Patient Can Go To The Location Of Their Choice, 04/25/2022 09:01:04 04/22/1904/25/2022 URINE CULTU RE ertapenem ERTAPE NEM SUSCEP TIBLE susceptib le Not Available [facility] (Centralized Electronic Ordering - All Locations) Patient Can Go To The Location Of Their Choice, 04/25/2022 09:01:04 04/22/1904/25/2022 URINE CULTU RE gentamicin GENTAM ICIN SUSCEP TIBLE susceptib le Not Available [facility] (Centralized Electronic Ordering - All Locations) Patient Can Go To The Location Of Their Choice, 04/25/2022 09:01:04 04/22/1904/25/2022 URINE CULTU RE levofloxacin LEVOFL OXACIN SUSCEP [...] Choice, 04/25/2022 09:01:04 04/22/1904/25/2022 URINE CULTU RE nitrofuranto in NITROF URANTO IN INTERM EDIATE intermedi ate Not Available [facility] (Centralized Electronic Ordering - All Locations) Patient Can Go To The Location Of Their Choice, 04/25/2022 09:01:04 04/22/1904/25/2022 URINE CULTU RE piperacillin /tazobactam PIPERA CILLIN /TAZOB AC SUSCEP TIBLE susceptib le Not Available [facility] (Centralized Electronic Ordering - All Locations) Patient Can Go To The Location Of Their Choice, 04/25/2022 09:01:04 0104/25/2022 URINE CULTU RE trimeth/sulf amethox TRIMET H/SULF AMETHO X SUSCEP TIBLE susceptib le Not Available [facility] (Centralized Electronic Ordering - All Locations) Patient Can Go To The Location Of Their Choice, [id number] 04/25/2022 09:01:04 04/22/19 23 04/25/2022 URINE CULTU RE tetracycline TETRAC YCLINE RESIST ANT resistant Not Available [facility] (Centralized Electronic Ordering - All Locations) Patient Can Go To The Location Of Their Choice, [id number] 04/25/2022 09:01:04 04/22/1904/22/2022 [facility] CYTOL OGY results Patie nt Name: JOYCE DAN nt : 1945 (Age: 76) Lab Acces shirley #: [id number] Colle ction Date: 023 Acces shirley Date: 023 Sign Out Date: 2022 Tissu e Sourc e: 1: THINP REP CRYSTAL ATTACHER PAP TEST, CERVI WILMAN: Final Diagn osis: NEGAT FUAD FOR INTRA EPITH ELIAL LESIO N OR MALIG PARTHA . Atrop hy. Satis facto ry for evalu ation . Parti ally obscu ring blood prese nt. Clini iwlman Histo ry: Date of Last Menst rual Perio d: not avail able Menst rual Histo ry: Post- menop ausal Contr acept fuad Histo ry: not avail able Ancil reginaldo Testi ng: HPV (ASCU S) Case image d by the ThinP rep Imagi ng Syste m with keeley hendrickson rescr tony hernandez or naomie cintron. Perfo rmed at [facility] ate Refer ence Labor atory depar tment of Cytol ogy, [address] [place] Clini wilman Histo ry (othe r): Z12.4 , LPS 02/12 negat fuad, routi ne scree n Phone #: [phone], On-Ca ll Patho logis t: [id number] Not Available [facility] (Centralized Electronic Ordering - All Locations) Patient Can Go To The Location Of Their Choice, [id number] 05/11/2022 12:37:32 04/22/1904/22/2022 urina lysis , dipst ick, auto glucose [...] Attach Compendium, Do Not Delete/merge, 04/22/2022 09:15:29 04/22/1904/22/2022 urina lysis , dipst ick, auto SG 1.010 Not Available In-Office Order Internal Use Only DO Not Attach Compendium DO Not Attach Compendium, Do Not Delete/merge, [id number] 04/22/2022 09:15:29 04/22/1904/22/2022 urina lysis , dipst ick, auto BLO HEMOLY ZED: TRACE Not Available In-Office Order Internal Use Only DO Not Attach Compendium DO Not Attach Compendium, Do Not Delete/merge, 04/22/2022 09:15:29 04/22/1904/22/2022 urina lysis , dipst ick, auto PH 6.0 Not Available In-Office Order Internal Use Only DO Not Attach Compendium DO Not Attach Compendium, Do Not Delete/merge, 04/22/2022 09:15:29 04/22/1904/22/2022 urina lysis , dipst ick, auto PRO NEGATI VE Not Available In-Office Order Internal Use Only DO Not Attach Compendium DO Not Attach Compendium, Do Not Delete/merge, 04/22/2022 09:15:29 04/22/1904/22/2022 urina lysis , dipst ick, auto URO [...] Scant backg round of atrop hic endom ettessyu m. - Immun ohist ochmariaa ical studi es are perfo rmed; the [...] hybri dizat ion labor joan es at [facility] ate Refer ence Yael Blackmon [place]. They may not have been clear ed or appro neto by the U.S. Food and Drug Admin istra tion (FDA) . Gopalev er, the FDA has deter mined that [...] Avenu e, [place] (CLIA #[id number]). Its perfo rmanc e yakelin cteri [...] tiple piece s, x2. (HG)* Phone #: [phone], On-Ca ll Patho logis t: [id number] Not Available [facility] (Centralized Electronic Ordering - All Locations) Patient Can Go To The Location Of Their Choice, [id number] 06/28/2023 17:10:31 07/20/19 22 07/19/2021 MAMMO , scree alejo, digit al, bilat eral No observ ation record ed. [facility] Orders [address], [place], [address], 07/20/2021 11:37:36 08/19/19 22 08/13/2021 bone densi ty No observ ation record ed. [facility] [address], [place], [address], 08/19/2021 09:28:11 09/27/19 23 09/26/2022 MAMMO , scree alejo, digit al, bilat eral No observ ation record ed. [facility] [address] [place], [address], 09/28/2022 07:37:12 06/16/19 24 06/16/2023 US, pelvi s, trans abdom inal + trans vagin al No observ ation record ed. [email or web address] Not Available 2023 09:26:54 11/04/19 24 11/04/2023 bone densi ty No observ ation record ed. [email or web address] [address], [address], 11/04/2023 11:19:40 12/13/19 24 12/11/2023 MAMMO , scree alejo, digit al, bilat eral No observ ation record ed. [facility] [address] [place], [address], 12/13/2023 13:26:49 Result Notes None recorded. Problems Name Problem SNOMED Code Status Onset Date Resolution Date Notes Provider Name and Address Organization Details Recorded Time Edema of foot 127587360 Active Jody Blankenship MD [address], [place], [address], [place] [facility], 6 15:39:57 Menopausal syndrome 088380581 Active Jody Blankenship MD [address], [place], [address], [place] [facility], 6 15:39:57 Abscess of vulva 66878677 Active 2015 spider bite lower left labia Jody Blankenship MD [address], [place], [address], [place] [facility], 6 08:51:39 Lichen sclerosus et atrophicus Active 2018 Jody Blankenship MD [address], [place], [address], [place] - [facility], 9 15:49:23 Gout 82321372 Active 2019 [place] in [facility], 0 14:24:40 Problem Notes None recorded. Procedures Surgical History Date Name Laterality Status Provider Name and Address Organization Details Recorded Time 06/23/19 24 Endometrial Biopsy completed Jody Blankenship MD [address], [place], [address], [place] [facility], 06/23/2023 11:28:32 09/27/19 23 Most Recent Mammogram completed Jing Alcala in [facility], 05/14/2023 07:59:44 08/14/19 22 Most Recent Bone Density completed Bambi Alcala in [facility], 04/22/2022 09:13:41 03/20/20 21 Endometrial Biopsy completed Jody Blankenship MD [address], [place], [address], [place] - [facility], 03/20/2021 14:13:15 12/13/19 16 I&D completed Jody Blankenship MD [address], [place], [address], [place] in [facility], 12/13/2015 12:54:28 04/19/19 10 Cholecystectomy completed Jing Alcala in [facility], 09/02/2012 15:53:36 Imaging Results None recorded. Procedure Notes None recorded. Medical Equipment None Reported. Allergies Allergen ID Allergen Name Allergen Category Reaction Reaction Severity Criticality Documentation Date Start Date Code Code System Note Provider Name and Address Organization Details Recorded Time 8281 Product containin g penicilli n (product) medicatio n hives Not available Not available 09/02/2012 55492 5673 SNOMED [place] in [facility], 3 15:53:36 Medications Name Sig Start Date [...] Available Not Available Not Available Fluarix Quad [id number] (PF) 60 mcg (15 mcg x 4)/0.5 mL IM syringe inject 0.5 millilite r intramusc ularly 11/24 completed Not Available Not Available Not Available Vitals Date Recorded Body height Body mass index (BMI) Body weight Body temperature Heart rate Systolic And Diastolic Provider Name and Address Organization Details Last Updated DateTime 3 162.56 cm 30.9 kg/m2 49954.3 5 g 96.8 [degF] 79 /min 143/77 mm[Hg] Bambi Alcala in [facility], 3 09:07:57 Date Recorded Body weight Body mass index (BMI) Body height Body temperature Heart rate Systolic And Diastolic Provider Name and Address Organization Details Last Updated DateTime 4 22945.5 5 g 32.6 kg/m2 162.56 cm 70 [degF] 91 /min 154/83 mm[Hg] rosaura Alcala in [facility], 4 13:22:22 Date Recorded Body height Body mass index (BMI) Body weight Body temperature Heart rate Systolic And Diastolic Provider Name and Address Organization Details Last Updated DateTime 4 162.56 cm 33 kg/m2 51671.7 4 g 97.4 [degF] 86 /min 152/80 mm[Hg] Jing Alcala in [facility], 4 10:01:24 Date Recorded Body height Provider Name an d Address Organization Details Last Updated DateTime 06/30/2023 162.56 cm Jing Dawkins in [facility], 06/30/2023 09:54:58 Date Recorded Body height Body mass index (BMI) Body weight Heart rate Body temperature Systolic And Diastolic Provider Name and Address Organization Details Last Updated DateTime 1 163.83 cm 32.7 kg/m2 07485.7 6 g 96 /min 97.2 [degF] 151/87 mm[Hg] Jing Alcala in [facility], 1 13:54:53 Social History Question Answer Notes LastModified by Organizat ion Details LastModified Time Tobacco Smoking Status Never Smoker Not Available [facility] 02/20/2020 03:19:37 How Many Years Have You Consumed Alcohol? 55 Information not available 02/12/2021 What Is Your Level Of Caffeine Consumption? Occasional [id number] Information not available 02/20/2020 In The 14 Days Before Symptom Onset, Have You Had Close Contact With A Laboratory-[facility] COVID-19 While That Case Was Ill? No Information not available 02/12/2021 In The 14 Days Before Symptom Onset, Have You Had Close Contact With A Person Who Is Under Investigation For COVID-19 While That Person Was Ill? No Information not available 02/12/2021 Have You Been To An Area Known To Be High Risk For COVID-19? No Information not available 02/12/2021 What Type Of Diet Are You Following? REGULAR [id number] Information not available 02/20/2020 Which Illicit Or Recreational Drugs Have You Used? No [id number] Information not available 02/20/2020 Do You Reside In Or Have You Traveled To An Area Where Ebola Virus Transmission Is Active? No [id number] Information not available 02/20/2020 Education 2 Year College Informatio n not available 09/02/2012 What Is The Highest Grade Or Level Of School You Have Completed Or The Highest Degree You Have Received? [id number] Information not available 02/12/2021 How Many Days In The Past Year [...] available 02/12/2021 Are You Sexually Active? No [id number] Information not available 02/20/2020 How Much Tobacco Do You Smoke? No [id number] Information not available 02/20/2020 General Stress Level High Information not available 01/11/2020 How Many Years Have You Smoked Tobacco? 0 [id number] Information not available 02/20/2020 Have You Recently [...] ion Details LastModified Time What is your level of alcohol consumption? Occasional [id number] Information not available 02/20/2020 Do you or have you ever used smokeless tobacco? Never used smokeless tobacco [id number] Information not available 02/20/2020 Are you currently employed? No Information not available 02/12/2021 What is your occupation? retired [employer] Information not available 11/24/2018 Do you or have you ever used e-cigarettes or vape? Never used electronic cigarettes [id number] Information not available 02/20/2020 What is your exercise level? Occasional [id number] Information not available 02/20/2020 Mental Status Question Answer Note LastModified by Organization D etails LastModified Time Do you feel stressed (tense, restless, nervous, or anxious, or unable to sleep at night)? [id number] Information not available 02/12/2021 Family History Relationship Description Onset Age of this Age Resolved Age Notes LastModified by Organization Details LastModified Time Mother Malignant neoplasm of breast 79 previo usly record ed as Breast Cancer Not available 09/17/2015 15:38:05 Mother Hypertensive disorder previo usly record ed as Hypert ension Not available 09/17/2015 15:38:05 Father Hypertensive disorder previo usly record ed as Hypert ension Not available 09/17/2015 15:38:05 Father Malignant neoplasm of lung previo usly record ed as Lung Cancer Not available 09/17/2015 15:38:05 Father Myocardial infarction previo usly record ed as Heart Attack ([place]) Not available 09/17/2015 15:38:05 Unspecified Relation Kidney disease nephew ca Not available 09/17/2015 15:38:05 Unspecified Relation Problem lung Not available 09/16 15:38:05 Medical History Condition Response Anesthesia complications N High Blood Pressure Y Candidate for MyRisk panel N Autoimmune Condition N Thyroid Problems N Kidney or Bladder Problems N GI Problems Y Lung Disease N Depression N Defects or Inherited Disease N History of [...] Organization Details Recorded Time Tdap 3 completed [place] in [facility], 09/02/2012 15:53:36 Influenza, split virus, trivalent, preservative 3 completed [place]ole in [facility], 09/04/2013 15:50:33 Influenza, split virus, trivalent, preservative 4 completed [place]ole in [facility], 09/06/2014 16:07:03 Influenza, split virus, trivalent, preservative 5 completed [place] Nichole in [facility], 09/17/2015 15:33:04 influenza, unspecified formulation 6 completed [place] Herring in [facility], 09/17/2016 15:14:32 Influenza, split virus, quadrivalent, preservative 7 completed [place]ole in [facility], 09/17/2017 15:27:39 Influenza, split virus, quadrivalent, preservative 8 completed [place] Herring in [facility], 11/24/2018 15:23:49 Influenza, split virus, quadrivalent, preservative 9 completed [place] in [facility], 01/11/2020 14:24:06 COVID-19, mRNA, LNP-S, PF, 100 mcg/0.5mL dose or 50 mcg/0.25mL dose 1 completed Bambi eng [place] - [facility], 02/12/2021 09:47:39 COVID-19, mRNA, LNP-S, PF, 100 mcg/0.5mL dose or 50 mcg/0.25mL dose 1 completed Bambi eng [place] [facility], 02/12/2021 09:47:34 Influenza, split virus, quadrivalent, preservative 1 completed Bambi eng [place] [facility], 02/12/2021 09:47:59 influenza, unspecified formulation 2 completed [place] in [facility], 04/22/2022 09:12:43 Past Encounters Encounter ID Performer Location Encounter Start Date Encounter Closed Date Diagnosis/Indication Diagnosis SNOMED-CT Code Diagnosis ICD10 Code Diagnosis IMO Codes Diagnosis Note [id number] MD JODY Talavera MD [address] [facility] [place] [address] 09/02/2012 15:15:25 09/05/2012 09:52:43 [id number] MD JODY Talavera MD [address] [place] [address],[address] [place] [address] 09/04/2013 15:24:12 09/04/2013 16:28:56 Screening for malignant neoplasm of cervix 085195956 Screening mammography 02168613 [id number] MD JODY Talavera MD [address] [facility] [place] [address] 09/06/2014 15:55:44 09/07/2014 08:15:27 Screening for malignant neoplasm of cervix 044234633 Screening mammography 31915323 Edema of foot 850692888 [id number] MD JODY Talavera MD [address] [place] [address],[place] [address] 09/17/2015 15:13:24 09/17/2015 16:05:45 Screening for malignant neoplasm of cervix 153676484 Z12.4 Screening mammography 24 135258 Z12.31 [id number] MD JODY Talavera MD [address] [place] [address], [place] [address] 12/12/2015 14:36:40 12/12/2015 16:05:58 Abscess of vulva 54713325 N76.4 [id number] MD JODY Talavera MD [address] [place] [address], [place] [address] 12/13/2015 11:23:04 12/13/2015 13:05:24 Abscess of vulva 14869224 N76.4 Spider bite wound 999531 008 W64.XXXD [id number] MD JODY Talavera MD [address] [place] [address],[facility] [place] [address] 12/16/2015 08:23:54 12/16/2015 10:12:09 Abscess of vulva 98743918 N76.4 [id number] MD JODY Talavera MD [address] [place] [address], [place] [address] 09/17/2016 15:09:33 09/17/2016 16:13:12 Screening for malignant neoplasm of cervix 783791515 Z12.4 Cares for self 659459923 Z76.89 [id number] MD JODY Talavera MD [address] [place] [address], [place] [address] 09/17/2017 15:18:42 09/17/2017 16:01:01 Screening for malignant neoplasm of cervix 176314732 Z12.4 Screening mammography 24 256247 Z12.31 Cares for self 985211088 Z76.89 [id number] MD JODY Talavera MD [address] [place] [address], [place] [address] 11/24/2018 15:07:36 11/24/2018 15:50:30 Screening for malignant neoplasm of cervix 117215942 Z12.4 Screening mammography 24 902775 Z12.31 Screening for osteoporosis 175230315 Z13.820 [id number] MD JODY Talavera MD [address] [place] [address] [address] [place] [address] 01/11/2020 14:13:52 01/11/2020 15:52:52 Screening for malignant neoplasm of cervix 196286373 Z12.4 Screening mammography 24 579886 Z12.31 Screening for osteoporosis 866251202 Z13.820 [id number] MD JODY Talavera MD [address] [place] [address], [place] [address] 02/12/2021 09:29:44 02/12/2021 10:16:02 Screening for malignant neoplasm of cervix 563581407 Z12.4 Screening mammography 24 000077 Z12.31 Screening for osteoporosis 609674533 N95.8 Dysuria 35452291 R30.0 Candidal vulvovaginitis 17068279 B37.3 [id number] MD JODY Talavera MD [address] [place] [address], [place] [address] 03/20/2021 13:50:29 03/20/2021 15:37:55 Postmenopausal bleeding 86207119 N95.0 [id number] MD JODY Talavera MD [address] [place], [place] [address]E [facility] [place] [place] [address] 04/22/2022 09:04:17 04/22/2022 12:03:59 Screening for malignant neoplasm of cervix 433951202 Z12.4 Screening mammography 24 928597 Z12.31 Screening for osteoporosis 820860963 N95.8 Dysuria 52133400 R30.0 66426 MD JODY Talavera MD [address] [place] [address] [place] [address] 06/10/2023 13:16:11 06/10/2023 15:57:47 Screening mammography 23350322 Z12.31 Screening for osteoporosis 307217827 N95.8 Pain in pelvis 14399548 R10.2 Screening for malignant neoplasm of cervix 919188251 Z12.4 Vaginal discharge 176194 006 N89.8 43976 MD JODY Talavera MD [address] [facility] [address] [place] [address] 06/23/2023 09:59:11 06/24/2023 11:02:16 Postmenopausal bleeding 87138923 N95.0 97420 MD JODY Talavera MD [address] [facility] [address] [place] [address] 06/30/2023 09:54:05 06/30/2023 11:25:11 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 Endometrium thickened 44 8277936 R93.89 Polyp of corpus uteri 11 245077 N84.0 Health Concerns Section Related Observation LastModified by Organization Detai ls LastModified Time None Recorded Concern Status LastModified by Organization Details LastModified Time None Recorded Advance Directives Directive None Recorded Payers Insurance Date Sequence Insurance Name Policy Number Policy Andrews Covered Member ID Andrews Member ID Guarantor Name 06/22/2023 1 [place]: [employer] Joyce Sorin Fili [id number] Joyce Penn 01/28/2021 2 [facility] OPEN ACCESS PLUS [id number] Joyce Penn [id number] Joyce Penn 07/06/2024 2 [facility] (MEDICARE SUPPLEMENT) Joyce Penn [id number] Joyce Penn Notes Date Note Type Note Provider Name and Address Organization Details Recorded Time 1 text/html She is here for emb after recent pap had endometrial cells. Her cervix is stenotic/closed. Jody Blankenship MD [address] [facility],[address], [place], [address], [place] - [facility], 03/20/2021 14:13:38 3 text/html She is here for annual exam, had emb last year for pap with endometrial cells, tissue was atrophic/inactive. note from 2020: She is here for annual exam ,is doing well, but has a few week history of vaginal pruritus and occasional dysuria. Jody Blankenship MD [address] [facility] [address], [place], [address], [facility], 04/22/2022 11:39:46 4 text/html She is here [...] inconclusive, check culture. Jody Blankenship MD [address] [facility],[address], [place], [address], [facility] - [facility], 06/10/2023 14:01:49 4 text/html She is here [...] C with hysteroscopy. Jody Blankenship MD [address] [facility],[address], [place], [address], [facility], 06/23/2023 11:30:23 4 text/html This visit is a phone telehealth visit. The patient consented to the visit by phone. The patient was at home at the time of the call and the provider and patient were the only people on the line. I was at [address] [place] [address], [place] [address], [place], at the time of the call. We [...] tissue was atrophic/inactive. Jody Blankenship MD [address] [facility],[address], [place], [address], [place] - [facility], 06/30/2023 10:30:29 OBGyn Episode No OBEpisode recorded.
--- OUTSIDE RECORDS SUMMARY | 2025-04-10 16:43 | XMS_ITS | Data Portability ---
Author Organization [facility] [address] Address [address] [place] [address] Care Team Providers Care Mva Still Operator Name Role Phone AMMON HIGGINS Primary Care Provider [phone] Assessment No assessment recorded. Plan of Treatment Reminders Order Date Submit Date Provider Last Modified By Organization Details Last Modified Time Details Appointments None recorded. Lab None recorded. Referral emergency medicine referral - chest pain x 1 day . radiation left shoulder . Normal EKG. need to rule out acute MA . need further evaluation. 2023 024 [email or web address] [address] [facility] Emergency Room, [address] [place], [address], 4 15:32:38 Procedures None recorded. Surgeries None recorded. Imaging electrocard iogram 2023 024 [email or web address] [address], [address] [place], [address], 07:54:50 Medication Orders None recorded. Patient TargetsNo targets recorded. Patient Instructions Encounter Date Encounter Id Patient Instructions Last Modified By Organization Details Last Modified Time 11/04/2023 [id number] chest pain: care instructions [email or web address] Not available 11/04/2023 15:24:51 Reason for Referral Emergency Medicine Referral for Chest pain chest pain x 1 day . radiation left shoulder . Normal EKG. need to rule out acute MA . need further chest pain x 1 day . radiation left shoulder . Normal EKG. need to rule out acute MA . need further evaluation. Referring Physician: Cholo Vitale, Urgent Care, Encounter Date: 11/04/2023 Results Created Date Observation Date Name Description Value Unit Range Abnormal Flag Note LastModifiedBy Organization Detail LastModifiedTime 11/04/19 24 elect binu diogr am No observ ation record ed. [email or web address] Not Available 10/17 18:32:42 11/08/19 24 11/08/2023 elect binu springgr am No observ ation record ed. JERRY [id number] [place], [address], 11/08/2023 07:54:48 Result Notes None recorded. Problems Name Problem SNOMED Code Status Onset Date Resolution Date Notes Provider Name and Address Organization Details Recorded Time Chest pain 77911538 Active 024 Cholo Vitale NP [address] [place], [address] , [place] - [facility] 11/04/2023 15:23:12 Problem Notes None recorded. Procedures Surgical History Date Name Laterality Status Provider Name and Address Organization Details Recorded Time cholecystectomy completed Carol Laguna [place] - [facility] 11/04/2023 14:51:53 Imaging Results None recorded. Procedure Notes None [...] t Available Vitals Date Recorded Oxygen saturation Heart rate Body temperature Body height Body mass index (BMI) Body weight Pain severity - 0-10 verbal numeric rating [Score] - Reported Respiratory rate Systolic And Diastolic Provider Name and Address Organization Details Last Updated DateTime 4 97 % 88 /min 97.9 [degF] 165.1 cm 27 kg/m2 21289.9 6 g 1 17 /min 186/88 mm[Hg] Carol BALDERRAMA - [facility] 14:48:14 Social History Question Answer Notes LastModified by Organizat ion Details LastModified Time Tobacco Smoking Status Never Smoker Carol Jase eng [place] - [facility] 11/04/2023 14:52:14 Have You Had A Flu Shot This Season? Yes [email or web address] Information not available 11/04/2023 If No, Would You Like A Flu Shot Today? No Information not available 11/04/2023 What Is Your Relationship Status? [email or web address] Information not available 11/04/2023 Are You Passively Exposed To Smoke? No [email or web address] Information no t available 11/04/2023 Have You Recently Traveled Abroad? No [email or web address] Information not available 11/04/2023 Sex: Unknown Functional Status Question Answer Note LastModified by Organization D etails LastModified Time Do you or have you ever used any other forms of tobacco or nicotine? No [email or web address] Information not available 11/04/2023 What is your level of alcohol consumption? None Information not available 11/04/2023 Are you currently employed? No Information not available 11/04/2023 Mental Status None recorded. Family History Nothing [...] [facility] 11/04/2023 14:50:12 Pneumococcal conjugate PCV20, polysaccharide BXF965 conjugate, adjuvant, PF 3 completed Carol Laguna [...] ICD10 Code Diagnosis IMO Codes Diagnosis Note [id number] [facility] [address] [address] 09/25/2020 15:33:46 09/25/2020 16:10:01 [id number] Cholo Vitale, RAG ROOM SUPERVISOR [address] [facility] [address] [place] [address] 11/04/2023 14:43:24 11/04/2023 15:32:38 Chest pain 42868401 R07.9 If you have any kind of [...] Member ID Andrews Member ID Guarantor Name 11/04/2023 1 MEDICARE [place]: [employer] Joyce Rowell Fili [id number] 1 Joyce Penn 11/04/2023 2 [facility] Joyce Penn [id number] Joyce Fili Notes Date Note Type Note Provider Name and Address Organization Details Recorded Time 4 text/html Chest PainReported by PatientHPIFor location, patient reportsradiates to the backbut reportschest,left arm, andmiddle scapular. For quality, patient reportspressureandaching . For context, patient reportsexertional,occurs with emotional stress,occurs with physical stress, andpositional. For aggravating factors, patient reportsworse with activityandworse with stress/emotional upset. For associated symptoms, patient reportschest discomfortbut reportsno dyspnea,no decrease in exercise capacity,no fatigue,no nocturnal episodes,no resting episodes,no associated palpitations, andno associated dizziness. For source of patient information, patient reportsinformation obtained from patient,patient arrived at urgent care ambulatory, andlearning styles: auditory(left chest pain x 1 day radiating to left shoulder . had stroke 3 months ago but no residual effects. comes with daughter for further evaluation . no sob or respiratory distress.). For severity, patient reportsmoderate. For duration, patient reportsstarted 1 days ago. For onset/timing, patient reportsintermittent. For alleviating factors, patient reportsrelieved with rest. Cholo Vitale NP [address] [place], [address], [place] - [facility] 11/08/2023 07:55:06 OBGyn Episode No OBEpisode recorded.
== END 2025-04-10 15:08 | disposition home or self-care (01) ==
LOC: HO.LAB 15:07
PROVIDERS: PCP Internal Medicine; Visit Provider Physician Assistant
DX: R09.89 Other specified symptoms and signs involving the circulatory and respiratory systems (principal); B34.9 Viral infection, unspecified; Z79.899 Other long term (current) drug therapy
CPT/HCPCS: 99202

== ENCOUNTER 2025-04-10 15:07 | Outpatient (AMB) | payer MEDICARE, OTHER, SELFPAY ==
--- OUTSIDE RECORDS SUMMARY | 2024-07-28 04:30 | XMS_ITS ---
Author Organization [facility] Address [address] [place] [address] Care Team Providers Care Cell Tuber Hand Name Role Phone Julianne Marmolejo Unavailable [phone] Kaplan Encounters Encounter Location Date Provider Diagnosis [address] [address] 07/28/2024 Julianne Marmolejo Plan Of Treatment Next Appt Details Provider Name:Julianne yip, 06/08/2025 09:00:00 AM, [address] [place], [address], Progress Notes * FILIJoyce HDOB:[birth year] (79 yo F)Acc No.[id number]:07/28/2024 Progress Notes Patient: Joyce GHOSH Provider: Bernie Marmolejo DPM :1945 A ge:78 Y S ex:Female Date:07/28/2024 Address:[address] [place] [address] [id number] Pcp:Jeanmarie Zambrano MD Subjective: * Chief Complaints: [...] 07/28/2024 Generated for Curt bryson/Yaneli/Marquis on: 1 06/11/2024 04:24 PM EST
--- OUTSIDE RECORDS SUMMARY | 2025-03-22 08:00 | XMS_ITS ---
Author Organization [facility] Address [address] [place] [address] Care Team Providers Care Clinical Cytogenetics Director Name Role Phone Julianne Marmolejo Unavailable [phone] Medications Medication SIG (Take, Route, Frequency, Duration) [...] ctive Encounters Encounter Location Date Provider Diagnosis [address] [address] 03/22/2025 Julianne Marmolejo Plan Of Treatment Next Appt Details Provider Name:Julianne yip, 06/08/2025 09:00:00 AM, [address] [facility], [place], [address], Progress Notes * Joyce PENN [birth year]OB:[birth year] (79 yo F)Acc No.[id number]:03/22/2025 Progress Note Patient: Kizzy YARONALICE Joyce Rowell Provider: Bernie Marmolejo DPM :1945 A ge:79 Y S ex:Female Date:03/22/2025 Address:[address] , [place], [place] Pcp:Jeanmarie Zambrano MD Subjective: * Chief Complaints: [...] Marmolejo DPM Date: 05/23/2024 Generated for Curt bryson/Yaneli/Marquis on: 06/11/2024 04:24 PM EST
[2025-04-10 15:19] VITALS: BP 140/78; PULSE 115; TEMP 37.4; O2SAT 97; BMI 28.5
--- NOTE | 2025-04-10 15:19 | AM.OFFWIN_ITS ---
Intake Vital Signs 04/10/25 15:19 Height 5 ft 5 in Weight 171 lb BMI 28.5 BP 140/78 H Blood Pressure Location Lt brachial Position Sitting Pulse 115 H Pulse Source Pulse Oximeter Temp 99.4 F Temp Source Oral Pulse Oximetry (%) 97 Oxygen Delivery Method Room Air Intake Visit Reasons: EP left pain radiating down left side Intake Note: Patient presents c/o chest discomfort, cough, SOB Patient Tobacco Use Status: Never used Tobacco Allergies Penicillins (PCN) Allergy (Verified 04/10/25 15:27) Unknown transparent dressing (Tegaderm) Allergy (Verified 04/10/25 15:27) Rash HPI HPI Comments History of Present Illness Details History - The patient is a 79-year-old female pr esenting with malaise. - She reports symptom onset this morning , including nasal congestion, headache, and myalgias in her shoulder and neck. - She has experienced subjective fevers but denied an objective fever when checking her temperature twice at home. - The patient reports measuring her puls e at home and finding it to be 105 bpm, which is higher than her normal rate in the 80s or 90s. 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 - She is prescribed furosemide 20 mg lacy ly. - She denies a history of heart failure, asthma, or COPD. [facility] Social History Patient Tobacco Use Status: Never used Tobacco Review of Systems Narrative Review of Systems - Constitutional: Reports feeling unwell, myalgias, and headache. - HEENT: Reports nasal congestion, ear pain, and pain posterior to the ear extending into the neck. - Cardiovascular: She noted her heart rate was 105 at home, which is higher than her usual rate of 80-90 bpm. - Respiratory: Denies shortness of breath, trouble breathing, and nocturnal cough. All systems reviewed and are unremarkable except as noted in HPI Physical Exam Exam Exam: Physical Exam General: Cooperative, healthy appearing, comfortable and no acute distress Orientation/consciousness: Patient oriented x3 Limitations: No limitations Head: Normal to inspection Ears: Hearing grossly normal bilaterally, external ears normal, EAC's normal bilaterally and TM's normal bilaterally Nose: Normal external nose present, Normal nares present and No nasal discharge present Face and sinus: Normal facial exam and sinuses tender Mouth: Normal oral and palatal mucosa present and moist mucous membranes Throat: tonsils normal, no exudates, uvula midline, posterior oropharynx erythema Eyes: Appearance normal, both eyes and all related structures Neck: Normal visual inspection, full ROM Respiratory: Clear to auscultation bilaterally. Normal respiratory effort, able to speak in complete sentences, no respiratory distress, not tachypneic, no tripod positioning and no use of accessory muscles Cardiovascular: Regular rate and rhythm. Normal S1 and S2, but patient is tachycardic Skin: No rashes or lesions noted Neuro: Patient oriented x3 Extremities: Normal to inspection and Yes no clubbing, cyanosis or edema Vital Signs: Last Vital Signs Temp 99.4 F 04/10/25 15:19 Pulse 115 H 04/10/25 15:19 BP 140/78 H 04/10/25 15:19 Pulse Ox 95 04/10/25 15:19 Oxygen Delivery Method Room Air 04/10/25 15:19 BMI result Body Mass Index 28.5 Assessment & Plan Assessment & Plan (1) Acute viral syndrome: Code(s): B34.9 - Viral infection, unspecified Plan: Patient was informed and verbally consented to the use of an ambient scribe for clinic note documentation during this visit. - VSS, pt well appearing and PE unremarkable. - The patient's symptoms are consistent with a viral upper respiratory infection, with differentials including influenza, COVID-19, and RSV. - A nasal swab was collected for flu, COVID, and RSV testing. - If the flu test is positive, a prescription for Tamiflu will be sent as she is on day 1 of her illness. - Recommended qbpi-duh-coykczd medications for symptom management, including Coricidin, which is safe for her high blood pressure, and an allergy pill such as Claritin, Leslie, or Xyzal to help dry secretions. - Advised rest, hydration, and provided CDC guidelines on self-care and indications for seeking emergency care. - Discussed preventative measures such as wearing a mask and handwashing to avoid transmission, as she is contagious. - The patient's tachycardia is likely secondary to dehydration from her acute illness. - Advised to increase fluid intake to rehydrate and to monitor her heart rate, aiming for it to decrease to the 90s. Continue furosemide, as prescribed. Orders: Orders SARS-CoV2/FLU/RSV Today R09.89 - Other specified symptoms and signs involving the circulatory and respiratory systems Medications: Discontinued methocarbamol Discontinued Reason: Patient Completed Course 750 mg PO Q8H PRN 10 tabs 0RF pain Coding Level of Care Code New Pt Level 3 (14410) Diagnoses Acute viral syndrome B34.9
--- OUTSIDE RECORDS SUMMARY | 2025-04-10 16:25 | XMS_ITS | Patient Health Record ---
Author Organization [facility] Address [address] [facility] [place] [address] Care Team Providers Care Pet House Sitter Name Role Phone Julianne Marmolejo Unavailable [phone] Allergies Allergen (clinical drug ingredient) Drug/Non Drug Allergy documented on EMR Reaction Allergy Type Onset Date Status diphenhydramine Antihistamine Unknown Drug Allergy Active erythromycin Erythromycin Unknown Drug Allergy A ctive Penicillin hives Drug Allergy Active Adhesive Unknown Allergy Active Reason For Referral No Information Medications Medication SIG (Take, Route, Frequency, Duration) Notes Start Date End Date Status Valsartan Active Furosemide Active Triamterene 100 MG 1 capsule Orally Onc e a day Not-Taking Omeprazole 10 MG 2 capsules Orally On ce a day Active Potassimin 75 MG 1 tablet Orally Once a day Not-Taking Latanoprost 0.005 % 1 drop into affected eye in the evening Ophthalmic Once a day Not-Taking ZyrTEC Allergy 10 MG 1 tablet as needed Orally Once a day Not-Taking amLODIPine Besylate Active Potassium Chloride A ctive Walking Boot/Pneumatic As directed Wear Daily; Duration: Until further notice 08/31/2017 Not-Taking busPIRone HCl Active Atorvastatin Calcium Active Immunizations Vaccine Route Administration Date Status Comme nts Influenza Unknown 01/12/2024 Administered Influenza Unknown 01/04/2025 Administered Social History Tobacco Use: Social History Observation Description Date Details (start date - stop date) Never Smoker NA - NA Tobacco use other than smoking: Question Answer Notes Are you an other tobacco user? No Tobacco Control (Standard) Question Answer Notes Tobacco use: Nonsmoker Additional Findings: Tobacco non-user Current no nsmoker AUDIT-C (Standard) Question Answer Notes Did you have a drink containing alcohol in the p ast year? No Points 0 Interpretation Negative Problems Problem Type SNOMED Code ICD Code Onset Dates Problem Status W/U Status Risk Notes Problem Localized, primary osteoarthritis of the ankle and/or foot (568551680) Primary osteoarthritis, right ankle and foot (M19.071) Active confirmed Problem Localized, primary osteoarthritis of the ankle and/or foot (532017430) Primary osteoarthritis, left ankle and foot (M19.072) Active confirmed Problem Bilateral atherosclerosis of arteries of lower limbs (disorder) (70370693962251954 ) Atherosclerosis of [place] artery of both lower extremities, with unspecified presence of clinical manifestation (I70.203) Active confirmed Q7(A), Q8(2B), Q9(1B,2 C) Vital Signs Blood pressure diastolic 80 mm Hg 03/23/2025 Height 5 ft 5 in in 03/23/2025 Blood pressure systolic 123 mm Hg 03/23/2025 Weight 165 lbs 03/23/2025 BMI 27.45 kg/m2 03/23/2025 Encounters Encounter Location Date Provider Diagnosis [facility] [address] [address] 08/09/2024 Julianne Marmolejo Atherosclerosis of [place] artery of both lower extremities, with unspecified presence of clinical manifestation I70.203 ; Edema, lower extremity R60.0 ; Tinea unguium B35.1 ; Pain in right toe(s) M79.674 and Ingrown nail L60.0 [facility] [address] [address] 10/18/2024 Julianne Marmolejo Edema, lower extremi ty R60.0 ; 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.072 ; Atherosclerosis of [place] artery of both lower extremities, with unspecified presence of clinical manifestation I70.203 ; Tinea unguium B35.1 ; Pain in right toe(s) M79.674 ; Pain in left ankle and joints of left foot M25.572 ; Bursitis of left foot M77.52 ; Pain in right ankle and joints of right foot M25.571 ; Bursitis of right foot M77.51 and Osteoarthritis of midtarsal joint of right foot M19.[address] [address] 01/10/2025 Julianne Marmolejo Edema, lower extremi ty R60.0 ; Neuritis M79.2 ; Atherosclerosis of [place] artery of both lower extremities, with unspecified presence of clinical manifestation I70.203 ; Tinea unguium B35.1 ; Pain in right toe(s) M79.674 ; Pain in left ankle and joints of left foot M25.572 and Pain in right ankle and joints of right foot M25.[address] [address] 03/23/2025 Julianne Marmolejo Neuritis M79.2 ; Primary osteoarthritis, left ankle and foot M19.072 ; Edema, lower extremity R60.0 ; Atherosclerosis of [place] artery of both lower extremities, with unspecified presence of clinical manifestation I70.203 ; Tinea unguium B35.1 ; Pain in right toe(s) M79.674 ; Pain in left ankle and joints of left foot M25.572 ; Pain in right ankle and joints of right foot M25.571 and Primary osteoarthritis, right ankle and foot M19.[address] [address] 08/01/2024 Julianne Marmolejo [address] [address] 08/09/2024 Julianne Marmolejo [address] [address] 03/22/2025 Julianne Marmolejo Assessments Encounter Date Diagnosis (ICD Code) Assessment Notes Treatment Notes Treatment Clinical Notes Section Notes 08/09/2024 Atherosclerosis of [place] artery of both lower extremities, with unspecified presence of clinical manifestation (ICD-10 - I70.203) Q7(A), Q8(2B), Q9(1B,2C) 08/09/2024 Edema, lower extremity (ICD-10 - R60.0) 10/18/2024 Osteoarthritis of midtarsal joint of left foot (ICD-10 - M19.072) 10/18/2024 Edema, lower extremity (ICD-10 - R60.0) 01/10/2025 Neuritis (ICD-10 - M79.2) 01/10/2025 Edema, lower extremity (ICD-10 - R60.0) 03/23/2025 Primary osteoarthritis, left ankle and foot (ICD-10 - M19.072) 03/23/2025 Neuritis (ICD-10 - M79.2) 03/23/2025 Edema, lower extremity (ICD-10 - R60.0) 01/10/2025 Atherosclerosis of [place] artery of both lower extremities, with unspecified presence of clinical manifestation (ICD-10 - I70.203) Q7(A), Q8(2B), Q9(1B,2C) 10/18/2024 Atherosclerosis of [place] artery of both lower extremities, with unspecified presence of clinical manifestation (ICD-10 - I70.203) Q7(A), Q8(2B), Q9(1B,2C) 08/09/2024 Tinea unguium (ICD-10 - B35.1) 08/09/2024 Pain in right toe(s) (ICD-10 - M79.674) 10/18/2024 Tinea unguium (ICD-10 - B35.1) 01/10/2025 Tinea unguium (ICD-10 - B35.1) 03/23/2025 Atherosclerosis of [place] artery of both lower extremities, with unspecified presence of clinical manifestation (ICD-10 - I70.203) Q7(A), Q8(2B), Q9(1B,2C) 03/23/2025 Tinea unguium (ICD-10 - B35.1) 01/10/2025 Pain in right toe(s) (ICD-10 - M79.674) 10/18/2024 Pain in right toe(s) (ICD-10 - M79.674) 08/09/2024 Ingrown nail (ICD-10 - L60.0) 10/18/2024 Pain in left ankle and joints of left foot (ICD-10 - M25.572) 03/23/2025 Pain in right toe(s) (ICD-10 - M79.674) 01/10/2025 Pain in left ankle and joints of left foot (ICD-10 - M25.572) 03/23/2025 Pain in left ankle and joints of left foot (ICD-10 - M25.572) 10/18/2024 Bursitis of left foot (ICD-10 - M77.52) 01/10/2025 Pain in right ankle and joints of right foot (ICD-10 - M25.571) 03/23/2025 Pain in right ankle and joints of right foot (ICD-10 - M25.571) 10/18/2024 Pain in right ankle and joints of right foot (ICD-10 - M25.571) 03/23/2025 Primary osteoarthritis, right ankle and foot (ICD-10 - M19.071) 10/18/2024 Bursitis of right foot (ICD-10 - M77.51) 10/18/2024 Osteoarthritis of midtarsal joint of right foot (ICD-10 - M19.071) Plan Of Treatment Pending Test Test Name Order Date X ray : Foot, left 3V 08/31/2017 X ray : Foot, left 3V 09/21/2017 X ray : Foot, left 3V 10/18/2024 X ray : Foot, right 3V 10/18/2024 [id number], Toes 08/31/2017 Next Appt Details Provider Name:Julianne yip, 06/08/2025 09:00:00 AM, [address] [place], [address], Insurance Providers Payer Name Payer Address Payer Phone Subscriber Number Group Number Insured Name Patient Relationship to Insured Coverage Start Date Coverage End Date Medicare [employer] [address] [facility] [place] [address] [id number] Joyce Penn Self - patient is the insured 2 [facility] [address] [place] [phone] [id number] Joyce Penn Self - patient is the insured Medical (General) History Medical History History ICD Code High blood pressure Reflux chronic sinusitis Measles Mumps Arthritis Stroke Chicken pox Gall bladder problems Surgical History Surgery Date(Month/Year) cholecystectomy 01/2010 Gall bladder removal Hospitalization History Reason Date(Month/Year) [facility]- stroke 07/2023 [facility]-chest pain 04/30/17
--- OUTSIDE RECORDS SUMMARY | 2025-04-10 16:25 | XMS_ITS | Clinical Summary ---
Author Organization [facility] Address [address] [place] [address] Phone Care Team Providers Care Chlorinator Operator Name Role Phone Jeanmarie Zambrano MD Primary Care Provider [phone] Allergies Active Allergy Reactions Criticality Noted Date Comments Adhesive Tape-Silicones Rash 12/13/2024 Diphenhydramine Hcl Rash 12/13/2024 Amoxicillin-Pot Clavulanate Rash 12/14/19 Clarithromycin GI intolerance 12/13/2024 Diclofenac-Silicone, Adhesive Rash 2024 Levofloxacin Rash 12/13/2024 Penicillin Rash 12/13/2024 Medications amLODIPine (NORVASC) 10 mg tablet Take 1 tablet (10 mg total) by mouth 1 (one) time each day. for 30 days 5 Active atorvastatin (Lipitor) 10 mg tablet Take 1 tablet (10 mg total) by mouth 1 (one) time each day. Active furosemide (LASIX) 20 mg tablet Take 1 tablet (20 mg total) by mouth 1 (one) time each day. Active busPIRone (BUSPAR) 5 mg tablet Take 1 tablet (5 mg total) by mouth 2 (two) times a day. for 30 days 5 Active potassium chloride (KLOR-CON M10) 10 mEq CR tablet Take 1 tablet (10 mEq total) by mouth 1 (one) time each day. Tablet may be swallowed whole (do not crush/chew/suck on) OR broken in half and each half swallowed separately OR dissolved (whole tablet) in ~4 ounces of water (allow ~2 minutes to dissolve, stir well and administer immediately). Active omeprazole (PriLOSEC) [address] capsule Take 1 capsule (40 mg total) by mouth 1 (one) time each day. Do not crush or chew. Active valsartan (DIOVAN) 160 mg tablet Take 1 tablet (160 mg total) by mouth 2 (two) times a day. Active Active Problems No known active problems Surgical History Surgery Date Site/Laterality Comments CHOLECYSTECTOMY OTHER SURGICAL HISTORY Medical History Medical History Date Comments Hypertension Hiatal hernia Hemorrhagic stroke ([facility] V24, [facility] V28) (HFpEF) heart failure with p reserved ejection fraction ([facility] V24, [facility] V28) GERD (gastroesophageal reflux disease) Gout Stroke ([facility] V24, [facility] V28) small bleed Disease of thyroid gland nodules Arthritis Joint pain CHF (congestive heart failure) ([facility] V24, [facility] V28) Social History Tobacco Use Types Packs/Day Years Used Date Smoking Tobacco: Never Assessed Comments Unknown Sex and Gender Information Value Date Recorded Sex Assigned at Not on file Legal Sex Female 12:45 AM EST Gender Identity Not on file Sexual Orientation Not on file Last Filed Vital Signs Vital Sign Reading Time Taken Comments Blood Pressure 142/82 12/26/2024 9:28 AM EDT Pulse 93 12/26/2024 9:28 AM EDT Temperature 36.2 C (97.1 F) 12/26/2024 9:28 AM EDT Respiratory Rate 18 12/26/2024 9:28 AM EDT Oxygen Saturation 96% 12/26/2024 9:28 AM EDT Inhaled Oxygen Concentration - - Weight 78 kg (172 lb) 12/13/2024 11:00 AM EDT Height 165.1 cm (5' 5 ) 12/13/2024 11:00 AM EDT Body Mass Index 28.62 12/13/2024 11:00 AM EDT Plan of Treatment Health Maintenance Due Date Last Done Comments Zoster Vaccines (1 of 2) 1996 RSV Immunization Adult Patients (1 - 1-dose 75+ series) 2021 Depression Screening 04/19/2024 Cholesterol Screening (Lipid Panel) 10/12/2024 Falls Risk Assessment 10/12/2024 Hepatitis C Screening 10/12/2024 Medicare Annual Wellness Visit 10/12/2024 Osteoporosis Screening (Bone Density Screening) 10/12/2024 Social Influencers of Health Screening 10/12/2024 COVID-19 Vaccine ( - season) 2024 10/02/2021, 05/14/2021, 07/19/2020, Additional history exists Influenza Vaccine (#1) 2024 , 01/25/2022, 02/10/2021, Additional history exists Hypertension/CHF/CAD Annual BMP Blood Test 12/20/2025 12/20/2024 DTaP,Tdap,and Td Vaccines (5 - Td or Tdap) 10/09/2031 10/08/2021, 06/03/2012, 04/19/2012, Additional history exists Pneumococcal Vaccine: 50+ Years Completed 03/02/2023, 03/08/2018, 04/19/2014, Additional history exists HIB Vaccines Aged Out No longer eligi ble based on patient's age to complete this topic HPV Vaccines Aged Out No longer eligi ble based on patient's age to complete this topic Hepatitis A Vaccines Aged Out No long er eligible based on patient's age to complete this topic Hepatitis B Vaccines Aged Out No long er eligible based on patient's age to complete this topic IPV Vaccines Aged Out No longer eligi ble based on patient's age to complete this topic MMR Vaccines Aged Out No longer eligi ble based on patient's age to complete this topic Meningococcal ACWY Vaccine Aged Out N o longer eligible based on patient's age to complete this topic Meningococcal B Vaccine Aged Out No l onger eligible based on patient's age to complete this topic RSV Immunization Patients Under 20 months Aged Out No longer eligible based on patient's age to complete this topic Varicella Vaccines Aged Out No longer eligible based on patient's age to complete this topic Procedures Procedure Name Priority Date/Time Associated Diagnosis Comments BASIC METABOLIC PANEL Routine 12/20/2024 12:22 PM EDT Endometrial polyp from Last 3 Months or Most Recently Relevant to Health Maintenance Results * (ABNORMAL) Basic metabolic panel (12/20/2024 12:22 PM EDT) Sodium 140 133 - 145 mmol/L LAB CHEMISTRY METHOD 12/20/2024 1:[address] [facility] Potassium 3.5 3.5 - 5.5 mmol/L LAB CHEMISTRY METHOD 12/20/2024 1:[address] [facility] Chloride 106 96 - 110 mmol/L LAB CHEMISTRY METHOD 12/20/2024 1:[address] [facility] CO2 30 21 - 32 mmol/L LAB CHEMISTRY METHOD 12/20/2024 1:[address] [facility] Anion Gap 4 3 - 11 LAB CHEMISTRY METHOD 12/20/2024 1:[address] [facility] Glucose 109(H) 70 - 100 mg/dL LAB CHEMISTRY METHOD 12/20/2024 1:[address] [facility] BUN 11 5 - 25 mg/dL LAB CHEMISTRY METHOD 12/20/2024 1:[address] [facility] Creatinine 0.95 0.50 - 1.10 mg/dL LAB CHEMISTRY METHOD 12/20/2024 1:[address] [facility] eGFR 61 >=60 mL/min/1. 73m2 LAB CHEMISTRY METHOD 12/20/2024 1:[address] [facility] Comment:Calculation based on the Chronic Kidney Disease Epidemiology Collaboration (CKD-EPI) equation refit without adjustment for race. BUN/Creatinine Ratio 11.6 LAB CHEMISTRY METHOD 12/20/2024 1:[address] [facility] Calcium 9.7 8.5 - 10.5 mg/dL LAB CHEMISTRY METHOD 12/20/2024 1:[address] [facility] Blood Venous blood specimen / Unknown Venipuncture / Unknown 12/20/2024 12:22 PM EDT 12/20/2024 12:46 PM EDT us Shae Skinner MD LAB BLOOD ORDERABLES Fin al Result [facility] [address] [place] [address], from Last 3 Months or Most Recently Relevant to Health Maintenance Insurance MEDICARE [facility] Advance Directives * Full Code - Default (Latest Code Status on File) Date Activated Date Inactivated Comments 12/26/2024 6:14 AM 12/26/2024 12:19 PM This is order is used when code status has not been discussed with the patient, or code status is otherwise unknown/unconfirmed To update the patient's code status, place a code status order. Do not modify or discontinue any currently active code status orders. Care Teams Chlorinator Operator Relationship Specialty Start Date End Date Jeanmarie Zambrano MD [address] [place] [address] PCP - General Internal Medicine 12/13/24
== END 2025-04-10 15:48 | disposition home or self-care (01) ==
PROVIDERS: PCP Internal Medicine; Visit Provider Physician Assistant
DX: B34.9 Viral infection, unspecified (principal)

== ENCOUNTER 2025-04-11 10:03 | Outpatient (REF) | payer MEDICARE, OTHER, SELFPAY ==
--- OUTSIDE RECORDS SUMMARY | 2024-07-28 04:30 | XMS_ITS ---
Author Organization [facility] Address [address] [place] [address] Care Team Providers Care Floorwalker Name Role Phone Julianne Marmolejo Unavailable [phone] Kaplan Encounters Encounter Location Date Provider Diagnosis [address] [address] 07/28/2024 Julianne Marmolejo Plan Of Treatment Next Appt Details Provider Name:Julianne ypi, 06/08/2025 09:00:00 AM, [address] [place], [address], Progress Notes * FILIJoyce HDOB:[birth year] (79 yo F)Acc No.[id number]:07/28/2024 Progress Notes Patient: Joyce GHOSH Provider: Bernie Marmolejo DPM :1945 A ge:78 Y S ex:Female Date:07/28/2024 Address:[address] [place] [address] [id number] Pcp:Jeanmarie Zambrano MD Subjective: * Chief Complaints: * [address] Kaplan[address] * Medical History: Objective: * Vitals: Assessment: Plan: * Treatment: * Images: * The named appointment provid er may or may not be the originator of this progress note, and it is not deemed complete until electronically signed by the appointment provider. Sign off status: Pending * Provider: Bernie Marmolejo DPM Date: 0 07/28/2024 Generated for Curt bryson/Yaneli/Marquis on: 1 06/12/2024 10:13 AM EST
--- OUTSIDE RECORDS SUMMARY | 2025-03-22 08:00 | XMS_ITS ---
Author Organization [facility] Address [address] [place] [address] Care Team Providers Care Employment Specialist/Program Manager Name Role Phone Julianne Marmolejo Unavailable [phone] Medications Medication SIG (Take, Route, Frequency, Duration) Notes Start Date End Date Status Walking Boot/Pneumatic As directed Wear Daily; Duration: Until further notice 08/31/2017 Not-Taking Latanoprost 0.005 % 1 drop into affected eye in the evening Ophthalmic Once a day Not-Taking ZyrTEC Allergy 10 MG 1 tablet as needed Orally Once a day Not-Taking Potassimin 75 MG 1 tablet Orally Once a day Not-Taking Triamterene 100 MG 1 capsule Orally Onc e a day Not-Taking Omeprazole 10 MG 2 capsules Orally On ce a day Active Valsartan Active Furosemide Active busPIRone HCl Active Atorvastatin Calcium Active amLODIPine Besylate Active Potassium Chloride A ctive Encounters Encounter Location Date Provider Diagnosis [address] [address] 03/22/2025 Julianne Marmolejo Plan Of Treatment Next Appt Details Provider Name:Julianne yip, 06/08/2025 09:00:00 AM, [address] [facility], [place], [address], Progress Notes * Joyce PENN HDOB:[birth year] (79 yo F)Acc No.[id number]:03/22/2025 Progress Note Patient: Kizzy YARONALICE Joyce Rowell Provider: Bernie Marmolejo DPM :1945 A ge:79 Y S ex:Female Date:03/22/2025 Address:[address] , [place], [id number] Pcp:Jeanmarie Zambrano MD Subjective: * Chief Complaints: * * Medical History: * Medications: T aking Potassium Chloride , Taking amLODIPine Besylate , Taking Atorvastatin Calcium , Taking busPIRone HCl , Taking Furosemide , Taking Valsartan , Taking Omeprazole 10 MG Capsule Delayed Release 2 capsules Orally Once a day , Not-Taking/PRN Triamterene 100 MG Capsule 1 capsule Orally Once a day , Not-Taking/PRN Potassimin 75 MG Tablet 1 tablet Orally Once a day , Not-Taking/PRN ZyrTEC Allergy 10 MG Tablet 1 tablet as needed Orally Once a day , Not-Taking/PRN Latanoprost 0.005 % Solution 1 drop into affected eye in the evening Ophthalmic Once a day , Not-Taking/PRN Walking Boot/Pneumatic As directed Wear Daily Objective: * Vitals: Assessment: Plan: * Treatment: * Images: * The named appointment provid er may or may not be the originator of this progress note, and it is not deemed complete until electronically signed by the appointment provider. Sign off status: Pending * Provider: Bernie Marmolejo DPM Date: 05/23/2024 Generated for Curt bryson/Yaneli/Rachelleitting on: 06/12/2024 10:13 AM EST
--- OUTSIDE RECORDS SUMMARY | 2025-04-11 10:14 | XMS_ITS | Patient Health Record ---
Author Organization [facility] Address [address] [facility] [place] [address] Care Team Providers Care Upward Bound Director Name Role Phone Julianne Marmolejo Unavailable [phone] Allergies Allergen (clinical drug ingredient) Drug/Non Drug [...] primary osteoarthritis of the ankle and/or foot (788563155) Primary osteoarthritis, right ankle and foot (M19.071) Active confirmed Problem Localized, primary osteoarthritis of the ankle and/or foot (136125130) Primary osteoarthritis, left ankle and foot (M19.072) Active confirmed Problem Bilateral atherosclerosis of arteries of lower limbs (disorder) (13754459649831350 ) Atherosclerosis of [place] artery of both lower extremities, with unspecified presence of clinical manifestation (I70.203) Active confirmed Q7(A), Q8(2B), Q9(1B,2 C) Vital Signs Blood pressure diastolic 80 mm Hg 03/23/2025 Height 5 ft 5 in in 03/23/2025 Blood pressure systolic 123 mm Hg 03/23/2025 Weight 165 lbs 03/23/2025 BMI 27.45 kg/m2 03/23/2025 Encounters Encounter Location Date Provider Diagnosis [facility] [address] [address] 08/09/2024 Julianne Marmolejo Atherosclerosis of 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 artery of both lower extremities, with unspecified [...] midtarsal joint of right foot M19.[address] [address] 01/10/2025 Julianne Marmolejo Edema, lower extremi ty R60.0 ; Neuritis M79.2 ; Atherosclerosis of [place] artery of both lower extremities, with unspecified presence of clinical manifestation I70.203 ; Tinea unguium B35.1 ; Pain in right toe(s) M79.674 ; Pain in left ankle and joints of left foot M25.572 and Pain in right ankle and joints of right foot M25.[address] [address] 03/23/2025 Julianne Marmolejo Neuritis M79.2 ; Primary osteoarthritis, left ankle and foot M19.072 ; Edema, lower extremity R60.0 ; Atherosclerosis of [place] artery of both lower extremities, with unspecified presence of clinical manifestation I70.203 ; Tinea unguium B35.1 ; Pain in right toe(s) M79.674 ; Pain in left ankle and joints of left foot M25.572 ; Pain in right ankle and joints of right foot M25.571 and Primary osteoarthritis, right ankle and foot M19.[address] [address] 08/01/2024 Julianne Marmolejo [address] [address] 08/09/2024 Julianne Marmolejo [address] [address] 03/22/2025 Julianne Marmolejo Assessments Encounter Date Diagnosis (ICD Code) Assessment Notes Treatment Notes Treatment Clinical Notes Section Notes 08/09/[address] [place] artery of both lower extremities, with unspecified [...] extremity (ICD-10 - R60.0) 01/10/[address] [place] artery of both lower extremities, with unspecified presence of clinical manifestation (ICD-10 - I70.203) Q7(A), Q8(2B), Q9(1B,2C) 10/18/[address] [place] artery of both lower extremities, with unspecified presence of clinical manifestation (ICD-10 - I70.203) Q7(A), Q8(2B), Q9(1B,2C) 08/09/2024 Tinea unguium (ICD-10 - B35.1) 08/09/2024 Pain in right toe(s) (ICD-10 - M79.674) 10/18/2024 Tinea unguium (ICD-10 - B35.1) 01/10/2025 Tinea unguium (ICD-10 - B35.1) 03/23/[address] [place] artery of both lower extremities, with unspecified [...] X ray : Foot, right 3V 10/18/2024 [id number], Toes 08/31/2017 Next Appt Details Provider Name:Julianne yip, 06/08/2025 09:00:00 AM, [address] [place], [address], Insurance Providers Payer Name Payer Address Payer Phone Subscriber Number Group Number Insured Name Patient Relationship to Insured Coverage Start Date Coverage End Date Medicare [employer] [address] [place] [address] [id number] Joyce Penn Self - patient is the insured 2 [facility] [address] [place] [phone] [id number] Joyce Penn Self - patient is the insured Medical (General) History Medical History History ICD Code High blood pressure Reflux chronic sinusitis Measles Mumps Arthritis Stroke Chicken pox Gall bladder problems Surgical History Surgery Date(Month/Year) cholecystectomy 01/2010 Gall bladder removal Hospital[place] History Reason Date([place] [facility] [place] [facility] pain 04/30/17
--- OUTSIDE RECORDS SUMMARY | 2025-04-11 10:14 | XMS_ITS | Clinical Summary ---
Author Organization [facility] Address [address] [place] [address] Phone Care Team Providers Care Extension Division Director Name Role Phone Jeanmarie Zambrano MD Primary Care Provider [phone] Allergies Active Allergy Reactions Criticality Noted Date [...] Date Comments Hypertension Hiatal hernia Hemorrhagic stroke ([facility] V24, [facility] V28) (HFpEF) heart failure with p reserved ejection fraction ([facility] V24, [facility] V28) GERD (gastroesophageal reflux disease) Gout Stroke ([facility] V24, [facility] V28) small bleed Disease of thyroid gland nodules Arthritis Joint pain CHF (congestive heart failure) ([facility] V24, [facility] V28) Social History Tobacco Use Types Packs/Day [...] mmol/L LAB CHEMISTRY METHOD 12/20/2024 1:41 PM [facility] Potassium 3.5 3.5 - 5.5 mmol/L LAB CHEMISTRY METHOD 12/20/2024 1:41 PM [facility] Chloride 106 96 - 110 mmol/L LAB CHEMISTRY METHOD 12/20/2024 1:41 PM [facility] CO2 30 21 - 32 mmol/L LAB CHEMISTRY METHOD 12/20/2024 1:41 PM [facility] Anion Gap 4 3 - 11 LAB CHEMISTRY METHOD 12/20/2024 1:41 PM [facility] Glucose 109(H) 70 - 100 mg/dL LAB CHEMISTRY METHOD 12/20/2024 1:41 PM [facility] BUN 11 5 - 25 mg/dL LAB CHEMISTRY METHOD 12/20/2024 1:41 PM [facility] Creatinine 0.95 0.50 - 1.10 mg/dL LAB CHEMISTRY METHOD 12/20/2024 1:41 PM [facility] eGFR 61 >=60 mL/min/1. 73m2 LAB CHEMISTRY METHOD 12/20/2024 1:41 PM [facility] Comment:Calculation based on the Chronic Kidney Disease Epidemiology Collaboration (CKD-EPI) equation refit without adjustment for race. BUN/Creatinine Ratio 11.6 LAB CHEMISTRY METHOD 12/20/2024 1:41 PM [facility] Calcium 9.7 8.5 - 10.5 mg/dL LAB CHEMISTRY METHOD 12/20/2024 1:41 PM [facility] Blood Venous blood specimen / Unknown Venipuncture / Unknown 12/20/2024 12:22 PM EDT 12/20/2024 12:46 PM EDT us Shae Skinner MD LAB BLOOD ORDERABLES Fin al Result [facility] [address] [place] [address], from Last 3 Months or Most Recently Relevant to Health Maintenance Insurance MEDICARE [facility] Advance Directives * Full Code - Default [...] currently active code status orders. Care Teams Extension Division Director Relationship Specialty Start Date End Date Jeanmarie Zambrano MD [address] [place] [address] PCP - General Internal Medicine 12/13/24
[2025-04-11 11:31] LABS: Resp Syncy Virus RNA Qual PCR NEGATIVE (Negative); SARS COV2 PCR INHOUSE POSITIVE (Negative)
== END 2025-04-11 10:04 | disposition home or self-care (01) ==
LOC: HO.LNP 10:03
PROVIDERS: Visit Provider Physician Assistant
DX: U07.1 COVID-19 (principal); R09.89 Other specified symptoms and signs involving the circulatory and respiratory systems
CPT/HCPCS: 87637